=== PATIENT | male | born 2000 | race African-American/Black ===

== ENCOUNTER 2024-07-15 15:43 | Outpatient (AMB) | payer OTHER, SELFPAY ==
--- NOTE | 2024-07-15 15:45 | MHC.PC.OV ---
Vital Signs 07/15/24 15:53 Height 5 ft 7.32 in Weight 180 lb BMI 27.9 BP 110/78 Blood Pressure Location Rt brachial Position Sitting Respiration 12 Pulse 70 Pulse Source Pulse Oximeter Pulse Oximetry (%) 97 Oxygen Delivery Method Room Air Intake Visit Re[facility] Intake Note: New patient visit Recovery Specialist Required: No Allergies Retin-A Allergy (Unknown, Uncoded 07/15/24 15:46) unknown Medication List - Last Reconciled 07/15/24 by [facility]im[facility] 10 mg PO DAILY Tobacco use date assessed: 07/15/24 Dental Screening Dental Screen Date: 07/15/24 Did you have a dental visit in the last 12 months?: Yes Did you have a dental problem in the last 6 months where you did not have access to dental care?: No Was dental information given to patient?: Patient has dentist HPI HPI Comments History of Present Illness Details History of Present Illness The patient is a 23-year-old male presenting for a hospital discharge follow up. Has concerns related to pericarditis and newly diagnosed hyperthyroidism. In early April, the patient experienced chest pain originating from shoulder discomfort and sought emergency care at [facility]. At that time, he was diagnosed with pericarditis and coincidentally discovered to have hyperthyroidism. Subsequent follow-up with an director of student financial services led to a diagnosis of Graves' disease, for which the patient commenced on methimazole at a dosage of 10 mg daily. There has been an indication of potential remission. The patient reports persistent increased heart rate and occasional shortness of breath during physical activities, but no ongoing chest pain. The patient has not undergone a repeat echocardiogram since the initial diagnosis and is concerned about potential physical activity limitations due to his previous medical history. He has also experienced difficulty swallowing, which led to another emergency department visit on July 05, but has since resolved. This record avail and reviewed. Other records n/a Wants to see derm for acne. Was seeing endo @ [facility], not happy, [place] [facility] [place] ROS - The patient has no reported history of illegal drug injection and only occasional social use of marijuana. - The patient is physically active but has some exercise intolerance, reporting shortness of breath during activities. 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 Completed colchine and asa x 14 days in Apr then stopped, not active w/ cards. Physical Exam General: Awake, alert. No apparent distress Eyes: Sclera and conjunctiva clear bilaterally Cardiovascular: Regular rate and rhythm, but recent history of pericarditis and abnormal EKG @ ED residual ST segment elevation in the anterior leads but no longer diffusely, higher suspiciion for benign early repolarization, nonspecific T wave abnormalities No costochondral tenderness Respiratory: Clear to auscultation bilaterally, but patient reports shortness of breath with exertion No edema BLE Plan - Pericarditis: Order an echocardiogram and a Holter monitor for further evaluation. Discuss continued monitoring of heart rhythm and structure. No chest pain currently; monitor symptoms closely. - Hyperthyroidism/Graves' Disease: Continue methimazole 10 mg daily. Follow up with endocrinology for ongoing management. - Arrange cardiology and endocrinology referrals to ensure integrated care. Initiate referrals through [facility] - per request. - Due to reported intolerance to aspirin, monitor for any signs of adverse effects and consider alternative management if necessary. Patient was informed and verbally consented to the use of an ambient scribe for clinic note documentation during this visit. Discussion Notes I discussed the patient's current medical status and the need for further evaluation of the pericarditis through an echocardiogram and a Holter monitor. We talked about potential activities and the possibility of participation in physical sports but agreed that clearance would depend on additional cardiac evaluations. The benefits of monitoring for possible arrhythmias through a Holter monitor were detailed, with an explanation of how symptoms could correlate to physiological data. For Graves' disease, we discussed the management plan involving methimazole, with a follow-up set for endocrinology consultations. I explained the option of transferring endocrinology care for more satisfactory communication and collaboration. Finally, I reiterated the importance of timely assessments for both cardiology and endocrinology. The patient expressed understanding of the plan and confirmed their cooperation. Patient Instructions - Continue taking methimazole 10 mg daily as prescribed. - Await contact from cardiology and endocrinology for scheduling of follow-up appointments and confirm visits. - Get the echocardiogram and Holter monitor tests performed as soon as possible. - Monitor for any new or worsening symptoms such as chest pain, difficulty breathing, or palpitations and report these promptly. - Maintain activity levels within comfort and avoid strenuous exertion until cleared by cardiology. - Use the patient portal for accessing test results and communicate with healthcare providers for any concerns arising. Derm referral per request RTO in 5-6 weeks to fu with PCP Dr Plummer on testing, sooner PRN Total time spent caring for the patient today was 60 minutes. This includes time spent before the visit reviewing the chart, time spent during the visit, and time spent after the visit on documentation PFSH Surgical History (Updated 07/15/24 @ 15:51 by Marian Choi CMA) H/O left knee surgery Family History (Updated 07/15/24 @ 15:51 by Marian Choi CMA) Mother No problems noted. Father No problems noted. Other Substance abuse Social History (Updated 07/15/24 @ 15:55 by Marian Choi CMA) Housing: House ([facility]) Alcohol intake: current Alcohol intake frequency: holidays/special occasions only Patient Tobacco Use Status: Former Tobacco user Years Smoked: 5 e-Cigarette/Vaping Use: Never Used Use of substances other than those prescribed or required for medical reasons: No service: No Current occupational status: employed Current occupation: [employer] Current occupational exposures/hazards: No Cognitive needs: No Hearing needs: No Questionnaire PHQ-9 Over the last 2 weeks, how often have you been bothered by any of the following problems? 1. Little interest or pleasure in doing things: not at all 2. Feeling down, depressed, or hopeless: not at all 3. Trouble falling or staying asleep, or sleeping too much: not at all 4. Feeling tired or having little energy: not at all 5. Poor appetite or overeating: several days 6. Feeling bad about yourself - or that you are a failure or have let yourself or your family down: not at all 7. Trouble concentrating on things, such as reading the newspaper or watching television: not at all 8. Moving or speaking so slowly that other people could have noticed. Or the opposite - being so fidgety or restless that you have been moving around a lot more than usual: not at all 9. Thoughts that you would be better off or of hurting yourself in some way: not at all Total score: 1 Depression Screening Interpretation: Negative Depression Screening Done: Yes 10744 - PHQ-9 Billing: Yes Source: Developed by Drs. Wing Harris, Connie Yepez, Jeff Dennis and colleagues, with an educational vane from [employer] Thrive Questionnaire Date Thrive assessed: 07/15/24 I am a: Patient What is your living situation today?: I have a steady place to live Within the past 12 months, did the food you bought not last and you didn't have the money to get more?: Never true Within the past 12 months, did you worry whether your food would run out before you got money to buy more?: Sometimes True Do you have trouble paying for medicines?: No Do you have trouble getting transportation to medical appointments?: No Do you have trouble paying your heating and electricity bill?: No Do you have trouble taking care of your child, family member or friend?: No Do you have trouble with day-to-day activities such as bathing, preparing meals, shopping, managing finances, etc.?: No Are you currently unemployed and looking for a job?: No Are you interested in more education?: Yes Please select the resources that you would like help with: Education Currently or been in a relationship where the following occur: No concerns reported THRIVE Score: 1 AUDIT C Alcohol Use Questionnaire (AUDIT-C) 1. How often do you have a drink containing alcohol?: Monthly or less 2. How many drinks containing alcohol do you have on a typical day when you are drinking?: 1 or 2 3. How often do you have six or more drinks on one occasion?: Never Total Score: 1 Score Reviewed/Action Taken: Yes JOE-7 AMB Questionnaire JOE-7 Date JOE - 7 assessed: 07/15/24 Feeling nervous, anxious, or on edge: 0 = Not at all Not being able to stop or control worryin = Several days Worrying too much about different things: 0 = Not at all Trouble relaxin = Not at all Being so restless that it is hard to sit still: 0 = Not at all Becoming easily annoyed or irritable: 0 = Not at all Feeling afraid as if something awful might happen: 0 = Not at all Total JOE-7 score (0-4 normal; 5-9 mild; 10-14 moderate; 15-21 severe): 1 Source: Developed by Drs. Wing Harris, Connie Yepez, Jeff Dennis and colleagues, with an educational vane from [employer] JOE-7 Assessment Billing JOE-7 Assessment Tool: JOE-7 Assessment 15840 Physical exam (Primary Care) Vital Signs: Last Vital Signs Pulse 70 07/15/24 15:53 Resp 12 07/15/24 15:53 BP 110/78 07/15/24 15:53 Pulse Ox 97 07/15/24 15:53 Oxygen Delivery Method Room Air 07/15/24 15:53 BMI result Body Mass Index 27.9 Tobacco/Smoking Status: Tobacco use Status Tobacco use date assessed 07/15/24 07/15/24 15:55 Patient Tobacco Use Status Former Tobacco user 07/15/24 15:55 e-Cigarette/Vaping Use Never Used 07/15/24 15:55 PHQ-9: PHQ-9 Score PHQ-9: Total score 1 07/15/24 16:22 Depression Screening Interpretation: Negative Thrive Assessment: Date of Thrive Assessment Date Thrive assessed 07/15/24 07/15/24 15:55 Currently or been in a relationship where the following occur: No concerns reported Coding Level of Care Code Est Pt Level 5 (02684) Complex EM visit Add On G2211 Diagnoses Hospital discharge follow-up Z09 Graves disease E05.00 Pericarditis I31.9 Pericarditis type: unspecified type Tachycardia R00.0 Acne vulgaris L70.0 Acne type: acne vulgaris Additional Codes JOE-7 Assessment Billing - JOE-7 Assessment Tool: JOE-7 Assessment 41721 ([id number]) PHQ-9 - 08271 - PHQ-9 Billing: Yes ([id number]) Assessment & Plan Assessment & Plan (1) Hospital discharge follow-up: Code(s): Z09 - Encounter for follow-up examination after completed treatment for conditions other than malignant neoplasm Category: Medical (2) Graves disease: Code(s): E05.00 - Thyrotoxicosis with diffuse goiter without thyrotoxic crisis or storm Category: Medical (3) Pericarditis: Code(s): I31.9 - Disease of pericardium, unspecified Category: Medical Qualifiers: Pericarditis type: unspecified type (4) Tachycardia: Code(s): R00.0 - Tachycardia, unspecified Category: Medical (5) Acne: Code(s): L70.9 - Acne, unspecified Category: Medical Qualifiers: Acne type: acne vulgaris Qualified Code(s): L70.0 - Acne vulgaris Plan . Orders: Orders CA echo transthoracic complete Today I31.9 - Disease of pericardium, unspecified ECG 3 day holter monitor Today I31.9 - Disease of pericardium, unspecified, R00.0 - Tachycardia, unspecified Lipid Panel Today E05.00 - Thyrotoxicosis with diffuse goiter without thyrotoxic crisis or storm, I31.9 - Disease of pericardium, unspecified, R00.0 - Tachycardia, unspecified Microalbumin, Random (w Creat) Today E05.00 - Thyrotoxicosis with diffuse goiter without thyrotoxic crisis or storm, I31.9 - Disease of pericardium, unspecified, R00.0 - Tachycardia, unspecified TSH reflex Free T4 Today E05.00 - Thyrotoxicosis with diffuse goiter without thyrotoxic crisis or storm, I31.9 - Disease of pericardium, unspecified, R00.0 - Tachycardia, unspecified Vitamin D 25-OH Total Today E05.00 - Thyrotoxicosis with diffuse goiter without thyrotoxic crisis or storm, I31.9 - Disease of pericardium, unspecified, R00.0 - Tachycardia, unspecified Vitamin B12 and Folate Today E05.00 - Thyrotoxicosis with diffuse goiter without thyrotoxic crisis or storm, I31.9 - Disease of pericardium, unspecified, R00.0 - Tachycardia, unspecified Erythrocyte Sedimentation Rate Today E05.00 - Thyrotoxicosis with diffuse goiter without thyrotoxic crisis or storm, I31.9 - Disease of pericardium, unspecified, R00.0 - Tachycardia, unspecified HIV Ab/Ag Today E05.00 - Thyrotoxicosis with diffuse goiter without thyrotoxic crisis or storm, I31.9 - Disease of pericardium, unspecified, R00.0 - Tachycardia, unspecified Uric Acid Today E05.00 - Thyrotoxicosis with diffuse goiter without thyrotoxic crisis or storm, I31.9 - Disease of pericardium, unspecified, R00.0 - Tachycardia, unspecified Lyme IgG/IgM w/reflex to WB Today I31.9 - Disease of pericardium, unspecified Complete Blood Count no Diff Today E05.00 - Thyrotoxicosis with diffuse goiter without thyrotoxic crisis or storm, I31.9 - Disease of pericardium, unspecified, R00.0 - Tachycardia, unspecified Comprehensive Met. Panel Today E05.00 - Thyrotoxicosis with diffuse goiter without thyrotoxic crisis or storm, I31.9 - Disease of pericardium, unspecified, R00.0 - Tachycardia, unspecified Hemoglobin A1c Today E05.00 - Thyrotoxicosis with diffuse goiter without thyrotoxic crisis or storm, I31.9 - Disease of pericardium, unspecified, R00.0 - Tachycardia, unspecified CRP High Sensitivity Today E05.00 - Thyrotoxicosis with diffuse goiter without thyrotoxic crisis or storm, I31.9 - Disease of pericardium, unspecified, R00.0 - Tachycardia, unspecified Hepatitis A,B,C Profile Today E05.00 - Thyrotoxicosis with diffuse goiter without thyrotoxic crisis or storm, I31.9 - Disease of pericardium, unspecified, R00.0 - Tachycardia, unspecified DAVID Reflex Titer and Pattern Today E05.00 - Thyrotoxicosis with diffuse goiter without thyrotoxic crisis or storm, I31.9 - Disease of pericardium, unspecified, R00.0 - Tachycardia, unspecified Referrals Endocrinology Referral E05.00 - Thyrotoxicosis with diffuse goiter without thyrotoxic crisis or storm Cardiology Referral I31.9 - Disease of pericardium, unspecified Dermatology Referral L70.9 - Acne, unspecified Patient Instructions: Walk-In Care (Urgent Care): We Make it Easy Walk-in for urgent medical issues such as: ? Seasonal Allergies ? Insect Bites ? Cough ? Diarrhea ? Acute Asthma Attacks ? Back, Knee or Joint Pain ? Ear Infection ? Fever without a Rash ? Headaches ? Nausea ? [place] [facility], Rash or Skin Irritation ? Sore Throat ? Sports Physicals ? Vomiting Most insurances are accepted. Patients do not need to be part of the [facility] to seek care at the walk-in clinic. Locations [facility] [address]a [address], [place] [address] ? [phone] [facility] in [place] provides services to ages 18 and over. Open Thursday-Thursday: 8 a.m. to 5 p.m. and Thursday: 9 a.m. to 3 p.m.* *Hours may vary due to staffing availability. To confirm Walk-In Care hours in [place], please call [phone]. [address] [place] [address] ? [phone] [facility] in [place] provides services to ages 12 and over. Open Thursday-Thursday: 8 a.m. to 5 p.m. Hours may vary due to staffing availability. To confirm Walk-In Care hours in [place], please call [phone]. LABORATORY SERVICES: [facility] ? Primary Location [address] [place] [address] Thursday through Thursday 6:00 AM ? 5:00 PM Thursday 7:00 AM ? 11:00 AM* [phone] The [facility] is centrally located near the front entrance of the [facility] for easy outpatient access. Convenient parking is provided for outpatients. *Hours may vary due to staffing availability. To confirm Laboratory hours for any location, please call [phone]. Offsite Location For your convenience, we offer offsite laboratory draw stations at the following locations: [address] [place] [address] ? [facility] [address], [address] Thursday through Thursday 7:30 AM ? 1:00 PM* [phone] *Hours may vary due to staffing availability. To confirm Laboratory hours for any location, please call [phone]. [place] ? [address] Thursday through Thursday 6:00 AM ? 3:30 PM* Thursday 6:30 AM ? 3 PM* [phone] *Hours may vary due to staffing availability. To confirm Laboratory hours for any location, please call [phone] [place] [address] Thursday through Thursday 7:30 AM ? 4:00 PM* [phone] *Hours may vary due to staffing availability. To confirm Laboratory hours for any location, please call [phone] [place] [address] Thursday through 9:00 AM ? 4:00 PM* *Hours may vary due to staffing availability. To confirm Laboratory hours for any location, please call [phone]. Appointments are not necessary. Walk-ins are welcome. Like all the departments throughout the [facility], our Lab undergoes frequent reviews to ensure the quality and accuracy of test results, and our staff takes special pride in its status as a nationally accredited facility. Patient Portal: ONE PATIENT. ONE RECORD. BETTER CARE. [facility] has a fully integrated, cutting-edge mobile electronic health information system that has revolutionized the way we care for our patients and manage our organization. This system improves communication and coordination enabling us to provide safe, higher-quality care, and an overall positive experience for staff and patients. Our first priority, as always, is to deliver the highest quality care possible. The system is running in the background supporting that priority. This portal is for all [facility] services and practices. If you are experiencing any technical difficulties with enrolling or logging into the Patient Portal please complete the [facility] Patient Portal Technical Support Form. [facility] now offers a new secure on-line interactive tool for patients to review their health information ? Patient Portal. This interactive web portal will enable patients and their families to take an active role in their care by providing easy, secure access to their health information via the internet. The Patient Portal provides patients with instant access to their health information, including laboratory results, medications, allergies, demographic information, visit history, and more. In addition to managing their own care, parents and health care proxies with authorized consent will appreciate the ability to access the records of those individuals for whom they provide care. Please note: if you wish to gain access (Proxy) to another patient?s portal, you will be required to come to the Medical Records Department in person at [facility]. Both the patient giving proxy access and the proxy will need to provide photo identification and complete the appropriate authorization. The Patient Portal also allows track their appointments online. The [facility] Patient Portal also saves patients time by allowing them to submit updates to their demographic and contact information prior to their visits. Portal email notifications will also alert patients to any new activity on their portal, such as test results and new appointments. In order to initially enroll in the [facility] Patient Portal, you will need to enter some required information including the following: ? your [facility] Medical Record number ? your personal home email address ? name ? date of Please note: In order to enroll in the [facility] Patient Portal, we need to have your email address on file in your electronic medical record. The email address needs to be specific for one person (yourself) in order for your Portal enrollment to be successful. You can update your email address in person with our Registration staff when you are registering for a hospital visit. Otherwise, you will need to come to the Health Information Management (Medical Records) Department at [facility]. We are open from Thursday ? Thursday from 7:30 a.m. ? 4:30 p.m. You will be required to present a photo id. Once you have successfully enrolled in the Patient Portal, you will receive a one-time user id and password for the Portal, sent to your email address. This will allow you to log into the Patient Portal within 99 hrs and reset your own logon id and password, and define personal security questions. Once your permanent login and password have been set, you can log into the [facility] Patient Portal at any time via the blue button above or from the Portal Logon button on any page of the [facility] website. [facility] and [facility] encourage all of our patients to enroll in Patient Portal as it presents a valuable opportunity for patients and their families to actively participate in their care and stay healthy Welcome to [facility]. We look forward to working with you.
[2024-07-15 15:53] VITALS: BP 110/78; PULSE 70; RESP 12; O2SAT 97; BMI 27.9
== END 2024-07-15 16:47 | disposition home or self-care (01) ==
PROVIDERS: PCP Family Medicine; Visit Provider Nurse Practitioner Family
DX: Z09 Encounter for follow-up examination after completed treatment for conditions other than malignant neoplasm (principal); E05.00 Thyrotoxicosis with diffuse goiter without thyrotoxic crisis or storm; I31.9 Disease of pericardium, unspecified; R00.0 Tachycardia, unspecified; L70.0 Acne vulgaris

== ENCOUNTER → 2024-07-15 15:43 | Outpatient (BNVA) | payer OTHER, SELFPAY | PROVIDERS: PCP Family Medicine; Visit Provider Nurse Practitioner Family | DX: Z09 Encounter for follow-up examination after completed treatment for conditions other than malignant neoplasm (principal); E05.00 Thyrotoxicosis with diffuse goiter without thyrotoxic crisis or storm; I31.9 Disease of pericardium, unspecified; R00.0 Tachycardia, unspecified; L70.0 Acne vulgaris | CPT/HCPCS: 96127; 99212 ==

== ENCOUNTER 2024-08-01 14:48 | Outpatient (AMB) | payer OTHER, SELFPAY ==
[2024-08-01 15:11] VITALS: BP 116/72; PULSE 85; BMI 26.3
--- NOTE | 2024-08-01 15:11 | A.OFFVIS_ITS ---
Vital Signs 08/01/24 15:11 Height 5 ft 10 in Weight 182 lb 15.739 oz BMI 26.3 BP 116/72 Blood Pressure Location Rt brachial Position Sitting Pulse 85 Pulse Source Pulse Oximeter Intake Visit Reasons: Thyrotoxicosis with diffuse goiter w/o thyrotoxic Intake Note: NEW Patient presents today to establish treatment for Thyrotoxicosis with Diffuse Goiter w/o Thyrotoxic: Pharmacy Clinical Specialist Required: No Accompanied by: Self / Same As Patient Allergies Retin-A Allergy (Unknown, Uncoded 07/15/24 15:46) unknown Medication List - Last Reconciled 08/01/24 by Yaquelin Benítez MD methimazole 10 mg PO DAILY HPI Comments Details: 23-year-old male here today for initial evaluation of Graves disease. Diagnosed in April 2024. Hospitalized in April 2024 , was diagnosed with pericaridits, and also found to have Graves disease based on blood work saw [facility] Endocrinology May 2024 Started on methimazole 10 mg daily , taking it regularly In June 2024, again went to the ED for throat pain, resolved with pain meds In April was having chest discomfort/ pain , shoulder pain. Came on suddenly. No palpitations . No loose stools. No heat intolerance. No diaphoresis. Lost 10 lbs and gained it back since starting methimazole. Patient currently denies , hair loss, anxiety, , mood changes, low energy, changes in appearance of eyes or vision changes, tremors, increased diaphoresis or dry skin. ?Reports mild tremors. Patient denies any difficulty swallowing, pain on swallowing or voice changes or difficulty breathing. Patient denies any history of childhood neck radiation. Denies having ever used lithium, amiodarone or biotin supplements. Patient denies any family history of thyroid cancer or thyroid disease. Occasional alcohol use No more smoking Quit 5 years ago Marijuana once in a few weeks Review of systems Constitutional: no fevers, chills or weight loss HEENT: no changes in vision Cardiac: No chest pain, discomfort or palpitations. Pulmonary: No SOB GI:No abdominal pain, no nausea or vomiting, no anorexia, no blood in stool : no burning micturition, dysuria or increase in urinary frequency Physical exam General: sitting comfortably in no acute distress HEENT: normocephalic/atraumatic, EOM intact, moist oral mucosa Neck: supple, symmetrical, mildly prominent thyroid , no dorsocervical or supraclavicular fat pads Cardiac: normal heart sounds Pulm: normal breath sounds B/L, no added breath sounds Abd: not distended, no tenderness Extremities: no edema, no signs of myxedema Neuro: AAO x3, Speech: normal, no facial droop, moving all 4 extremities PFSH Surgical History (Updated 08/01/24 @ 15:17 by NAZARIO Heard) H/O left knee surgery Family History (Updated 07/15/24 @ 15:51 by Marian Choi CMA) Mother No problems noted. Father No problems noted. 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 I do not have any TFTs in the chart. He was previously seeing endocrinology at [facility]. We will try to obtain records. We will repeat his blood work today as well as antibody levels for our records. Does not have any significant symptoms currently. He was also diagnosed with pericarditis in April 2024, he has a upcoming appointment with Cardiology on August 15. No signs of Graves orbitopathy on exam. He does not have any eye symptoms. Discussed with patient that about 30% of the patients have remission after 12-18 months of treatment with methimazole. More recent data has shown longer periods of treatment resulting in better remission rates as well. At this time we will plan to continue treatment with methimazole and continue adjusting the dose as needed. In the long run if she does not have remission, we also briefly discussed definitive therapy options of radioactive iodine ablation and total thyroidectomy and the need for requiring long-term levothyroxine therapy after those procedures. Plan: -ordered TSH, free T4, total T3, TSI, trap antibodies -obtain records from [facility] -continue methimazole 10 mg daily The following were discussed as potential side effects of methimazole: - Serious skin rashes - nausea, vomiting, or severe hepatic injury - Agranulocytosis: a rare side effect of methimazole involves a severe decrease in the production of white blood cells. This condition is extremely serious, but affects only one out of every 200 to 500 people who take an antithyroid drug. Agranulocytosis more commonly occurs within the first three months of starting treatment with an antithyroid drug, but can occur at any time. If patient develops a fever (temperature above 100.5F), or other signs or symptoms of infection, she should stop taking the tapazole and immediately have a complete blood count (CBC) done. Serious and potentially life threatening infections, or even , can occur before agranulocytosis resolves. However, once the antithyroid drug is stopped, agranulocytosis usually resolves within a week. - Arthralgias, myalgias - Renal: Nephritis - Fever Patient will stop medication and call our office if these occur. Plan I spent 45 minutes in reviewing the record, seeing the patient and documenting in the medical record. Orders: Orders Thyroid Stimulating Hormone Today E05.00 - Thyrotoxicosis with diffuse goiter without thyrotoxic crisis or storm Triiodothyronine T3 Total Today E05.00 - Thyrotoxicosis with diffuse goiter without thyrotoxic crisis or storm Thyroid Peroxidase Antibodies Today E05.00 - Thyrotoxicosis with diffuse goiter without thyrotoxic crisis or storm Free T4 (Free Thyroxine) Today E05.00 - Thyrotoxicosis with diffuse goiter without thyrotoxic crisis or storm Thyroid Stimulating Immunoglob Today E05.00 - Thyrotoxicosis with diffuse goiter without thyrotoxic crisis or storm Thyrotropin Receptor Antibody Today E05.00 - Thyrotoxicosis with diffuse goiter without thyrotoxic crisis or storm Patient Instructions: Do blood work Continue methimazole 10 mg daily Follow up in 3 months The following were discussed as potential side effects of methimazole: - Serious skin rashes - nausea, vomiting, or severe hepatic injury - Agranulocytosis: a rare side effect of methimazole involves a severe decrease in the production of white blood cells. This condition is extremely serious, but affects only one out of every 200 to 500 people who take an antithyroid drug. Agranulocytosis more commonly occurs within the first three months of starting treatment with an antithyroid drug, but can occur at any time. If patient develops a fever (temperature above 100.5F), or other signs or symptoms of infection, she should stop taking the tapazole and immediately have a complete blood count (CBC) done. Serious and potentially life threatening infections, or even , can occur before agranulocytosis resolves. However, once the antithyroid drug is stopped, agranulocytosis usually resolves within a week. - Arthralgias, myalgias - Renal: Nephritis - Fever Patient will stop medication and call our office if these occur. Coding Level of Care Code New Pt Level 4 (20963) Diagnoses Graves disease E05.00 Time Spent (min) 45
== END 2024-08-01 15:52 | disposition home or self-care (01) ==
PROVIDERS: PCP Family Medicine; Visit Provider Student in an Organized Health Care Education/Training Program
DX: E05.00 Thyrotoxicosis with diffuse goiter without thyrotoxic crisis or storm (principal)
CPT/HCPCS: 99204

== ENCOUNTER 2024-08-01 14:48 | Outpatient (REF) | payer OTHER, SELFPAY ==
[2024-08-01 17:45] LABS: Free T4 (Free Thyroxine) 1.34 ng/dL (0.71-1.85); Thyroid Stimulating Hormone < 0.01 uIU/mL (0.32-4.0)
[2024-08-02 23:09] LABS: Thyroid Peroxidase Antibodies 3 IU/mL (<9)
[2024-08-03 06:39] LABS: Triiodothyronine T3 Total 273 ng/dL (76-181)
[2024-08-05 14:38] LABS: Thyrotropin Receptor Antibody 6.24 IU/L (<=2.00)
[2024-08-05 15:13] LABS: Thyroid Stimulating Immunoglob 238 % baseline (<140)
== END 2024-08-01 14:49 | disposition home or self-care (01) ==
LOC: HO.LAB 14:48
PROVIDERS: PCP Family Medicine; Visit Provider Student in an Organized Health Care Education/Training Program
DX: E05.00 Thyrotoxicosis with diffuse goiter without thyrotoxic crisis or storm (principal)
CPT/HCPCS: 36415; 83520; 84439; 84443; 84445; 84480; 86376; 99202

== ENCOUNTER 2024-08-09 15:10 | Outpatient (REF) | payer OTHER, SELFPAY ==
[2024-08-09 17:08] LABS: Hematocrit 44.4 % (42.0-52.0); Hemoglobin 14.8 g/dl (14.0-18.0); Mean Corpuscular HGB Conc 33.3 g/dl (31.0-36.0); Mean Corpuscular Hemoglobin 25.2 pg (27.0-33.0); Mean Corpuscular Volume 75.5 fL (80.0-98.0); Mean Platelet Volume 10.7 fL (9.4-12.4); Platelet Count 216 X10*3/uL (160-400); Red Blood Count 5.88 X10*6/uL (4.60-5.80); Red Cell Distribution Width 13.5 % (11.0-16.0); White Blood Count 7.1 X10*3/uL (4.8-10.8)
[2024-08-09 17:45] LABS: Estimated Average Glucose 111 mg/dL; Hemoglobin A1C 134.3597 umol/L; Hemoglobin A1c % 5.5 % (<6.0); Total Hemoglobin (HGBA1C) 3706.7615 umol/L
[2024-08-09 17:48] LABS: Alanine Aminotransferase 65 U/L (0-40); Albumin Level 4.4 g/dL (3.5-5.0); Alkaline Phosphatase 249 U/L (39-117); Anion Gap 10 (12-20); Aspartate Amino Transferase 25 U/L (5-37); Bilirubin Total 0.7 mg/dL (0.0-1.0); Blood Urea Nitrogen 14 mg/dL (9-16); Calcium 9.8 mg/dL (8.4-10.2); Carbon Dioxide 29 mmol/L (22-29); Chloride 101 mmol/L (96-108); Cholesterol 136 mg/dL (<200); Estimated Glomerular Filt Rate > 60; Glucose Random 86 mg/dL (60-115); HDL Cholesterol 50 mg/dL (>40); LDL Cholesterol Calculated 63 mg/dL (<100); Sodium 136 mmol/L (135-145); Total Protein 8.1 g/dL (6.5-8.0); Triglycerides 119 mg/dL (<150); Uric Acid 7.5 mg/dL (3.4-7.0)
[2024-08-09 17:51] LABS: Creatinine Urine 123.76 mg/dL; Microalbum/Creatinine Ratio Ur 4.8 ug/mg cr (<30)
[2024-08-09 18:09] LABS: TSH reflex Free T4 < 0.01 uIU/mL (0.32-4.0)
[2024-08-09 18:27] LABS: Erythrocyte Sedimentation Rate 17 MM/HR (0-15)
[2024-08-09 18:49] LABS: Free T4 (Free Thyroxine) 1.62 ng/dL (0.71-1.85)
[2024-08-09 21:18] LABS: Vitamin B12 466 pg/mL (200-900)
[2024-08-10 08:28] LABS: HBS Num1 0.61 mIU/mL (0-7.99); HBsAGNum1 0.46 S/CO (0.00-0.99); HIV AB/AG Nonreactive (Nonreactive); HIV Num 1 0.05 S/CO (0.00-0.99); Hepatitis A Antibody IgM 0.16 Index (0-0.79); Hepatitis B Core Antibody Nonreactive (Nonreactive); Hepatitis B Surface Antigen Negative (Negative); ~HepC Num1 0.34 S/CO (0.00-0.79); ~Hepatitis A Antibody IgM Nonreactive (Nonreactive); ~Hepatitis B Surface Antibody NONREACTIVE (Nonreactive); ~Hepatitis C Antibody Nonreactive (Nonreactive)
[2024-08-10 09:05] LABS: MANUAL DIFF FLAG NO
[2024-08-10 09:17] LABS: Basophils Percent Auto 0.4 % (0-2); Eosinophils Percent Auto 0.4 % (0-4); Hematocrit 45.8 % (42.0-52.0); Hemoglobin 14.9 g/dl (14.0-18.0); Imm Gran Abs Auto 0.01 X10*3/uL (0.00-0.03); Imm Gran Pct Auto 0.1 % (0.0-0.4); Lymphocytes Absolute Auto 0.8 X10*3/uL (1.2-4.9); Lymphocytes Percent Auto 11.3 % (20-40); Mean Corpuscular HGB Conc 32.5 g/dl (31.0-36.0); Mean Corpuscular Hemoglobin 25.2 pg (27.0-33.0); Mean Corpuscular Volume 77.4 fL (80.0-98.0); Mean Platelet Volume 10.8 fL (9.4-12.4); Monocytes Absolute Auto 0.5 X10*3/uL (0.1-1.2); Neutrophils Absolute Auto 5.9 x10*3/uL (2.0-8.3); Neutrophils Percent Auto 80.8 % (45-73); Platelet Count 222 X10*3/uL (160-400); Red Blood Count 5.92 X10*6/uL (4.60-5.80); Red Cell Distribution Width 13.8 % (11.0-16.0); White Blood Count 7.3 X10*3/uL (4.8-10.8)
[2024-08-10 19:48] LABS: Lyme Abs Screen <0.90 index
[2024-08-12 15:23] LABS: Anti Nuclear Antibody Screen NEGATIVE (NEGATIVE)
[2024-08-14 18:19] LABS: CRP High Sensitivity >20.0 mg/L
== END 2024-08-09 15:11 | disposition home or self-care (01) ==
LOC: HO.LAB 15:10
PROVIDERS: Nurse Practitioner Family; PCP Family Medicine; Visit Provider Student in an Organized Health Care Education/Training Program
DX: I31.9 Disease of pericardium, unspecified (principal); E05.00 Thyrotoxicosis with diffuse goiter without thyrotoxic crisis or storm; R00.0 Tachycardia, unspecified
CPT/HCPCS: 36415; 80053; 80061; 82043; 82306; 82570; 82607; 82746; 83036; 84439; 84443; 84550; 85025; 85027; 85652; 86038; 86141; 86617; 86618; 86704; 86706; 86709; 86803; 87340; 87389

== ENCOUNTER → 2024-08-15 13:55 | Outpatient (REF) | payer OTHER, SELFPAY ==
--- NOTE | 2024-08-15 13:58 | CA_ITS ---
Transthoracic Echocardiogram Patient (Last, First, Middle): Burak Mcarthur, Gender: Male Date of : 2000 Age: 23 Procedure Date: 08/15/2024 Procedure Type: Transthoracic Echocardiogram Location: OP Height: 177.8 cm Weight: 82.56 kg BSA: 2.01 m2 Heart Rate: bpm BP: 116 / 72 mmHg Consulting Networking Engineer: LYNDA Referring MD: Kim Ulloa [facility]- Symptoms: I31.9 - Disease of pericardium, unspecified Study Quality: Adequate ECG Rhythm: Sinus Conclusions: - The left ventricular systolic function is normal. The calculated ejection fraction is 64% by biplane method. - No obvious valvular pathology seen on this study. Findings Left Ventricle Normal left ventricular cavity size. There is normal left ventricular wall thickness. The left ventricular systolic function is normal. The calculated ejection fraction is 64% by biplane method. There is no evidence of regional wall motion abnormalities. Diastolic function is normal for age. Right Ventricle Mildly increased right ventricular cavity size. There is normal right ventricular systolic function. Atria Both atria are normal in size. Aortic Valve There is a normal trileaflet aortic valve. There is no aortic valve stenosis. There is no aortic valve regurgitation. Mitral Valve The mitral valve appears normal. There is no mitral valve regurgitation. There is no mitral valve stenosis. Pulmonic Valve There is trace pulmonic valve regurgitation. Tricuspid Valve Normal tricuspid valve structure. There is trace tricuspid valve regurgitation. There is no evidence of pulmonary hypertension. Great Vessels The asc aorta and aortic arch are normal in size. Venous The inferior vena cava is normal in size and collapses greater than 50% with inspiration. Pericardium/Pleural There is no evidence of pericardial effusion. Prior Study Comparison No prior study available for comparison. Recommendations, Care & Conclusions No obvious valvular pathology seen on this study. Measurements 2D Linear Measurements IVSd: 1.03 0.6-0.9/0.6-1.0 cm LVIDd: 5.02 3.9-5.3/4.2-5.9 cm LVIDd Index: 2.50 2.4-3.2/2.2-3.1 cm/m2 LVIDs: 2.92 2.0-3.6 cm LVPWd: 0.97 0.7-1.1 cm LA Diam: 3.60 2.7-3.8/3.0-4.0 cm LAIDs Index: 1.79 1.5-2.3 cm/m2 LV Mass: 228.07 67-162/88-224 g LV Mass Index: 113.47 43-95/49-115 g/m2 LVOT Diam: 2.30 3.0+(-)1.3 cm 2D Systolic Function EF 4C: 59.20 >55% EF 2C: 67.70 >55% EF BiP: 63.90 >55% Mitral Valve MV Pk E: 0.66 MV PK A: 0.62 MV Decel Time: 218.00 E/A: 1.10 E'Lateral: 16.60 E'Medial: 10.80 E/E' Med: 6.10 E/E' Lat: 4.00 PHT: 64.00 MVA PHT: 3.44 Decel [place]: 3.04 Aortic Valve AoV Pk Ruben: 1.49 AoV Mn Ruben: 1.05 AoV VTI: 0.28 AoV Pk Grad: 9.00 Aov Mn Grad: 5.00 ANTONY Cont.VTI: 3.28 LVOT LVOT Pk Ruben: 1.24 LVOT Mn Ruben: 0.86 LVOT VTI: 0.22 LVOT Pk Grad: 6.00 LVOT Mn Grad: 3.00 LVOT Diam: 2.30 LVOT Area: 4.15 Diastolic Function MV Pk E: 0.66 MV Pk A: 0.62 E/A: 1.10 E'Medial: 10.80 E/E' Med: 6.10 E' Laterial: 16.60 E/E' Lat: 4.00 Right Ventricle TAPSE (mm): 24.40 TVS' Ruben: 12.70 Tricuspid Valve TR Pk Ruben: 1.84 TR Pk Grad: 14.00 RA Press: 3.00 RVSP: 17.00 Great Vessels Aorta Sinus of Valsalva: 3.36 2.0-3.[address] [place]: 2.14 1.7-3.4 cm Ao Asc: 2.70 2.1-3.4 cm Ao Arch: 2.40 Updated in Other Vendor System with Status of Final Álvaro Garcia MD electronically signed on 08/15/2024 3:35:38 PM with status of Final
== END ==
LOC: HO.CARD 13:55
PROVIDERS: PCP Family Medicine; Visit Provider Nurse Practitioner Family
DX: I31.9 Disease of pericardium, unspecified (principal); R00.0 Tachycardia, unspecified
CPT/HCPCS: 93242; 93306

== ENCOUNTER → 2024-08-15 13:58 | Outpatient (BNV) | payer OTHER, SELFPAY | PROVIDERS: PCP Family Medicine; Visit Provider Internal Medicine | DX: I31.9 Disease of pericardium, unspecified (principal) | CPT/HCPCS: 93306 ==

== ENCOUNTER 2024-08-18 11:58 | Outpatient (AMB) | payer OTHER, SELFPAY ==
--- NOTE | 2024-08-18 12:32 | A.OFFPC_ITS ---
Vital Signs 08/18/24 12:34 Height 5 ft 10 in BP 120/70 Blood Pressure Location Rt brachial Position Sitting Respiration 14 Pulse 97 Pulse Source Pulse Oximeter Pulse Oximetry (%) 98 Oxygen Delivery Method Room Air Intake Visit Reasons: tyler back to [facility] (keep appt) Intake Note: tyler Allergies Retin-A Allergy (Unknown, Uncoded 07/15/24 15:46) unknown Tobacco use date assessed: 07/15/24 Dental Screening Dental Screen Date: 07/15/24 HPI tyler back to [facility] (keep appt) HPI Details 23 y/o male presents to f/u chronic cond itions. Had seen endocrinology 08/01/24 for Graves disease. Currently on methimazole 10mg daily. Has an appt. with them in October. Was diagnosed with pericarditis in April 2024. Has an upcoming appt. with Cardiology. Has a [address] in [address]. HPI Comments History of Present Illness Details Documentation assistance for Ravindra Plummer MD, was provided by Dane Beaulieu,? Sports Complex Attendant on 08/18/2024 at 1:14 PM EST. I, Dr. Plummer, have read, observed, and verified documentation. ?? PFSH Surgical History H/O left knee surgery Family History Mother No problems noted. Father No problems noted. 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 [employer] Current occupational exposures/hazards: No Cognitive needs: No Hearing needs: No Questionnaire Thrive Questionnaire Date Thrive assessed: 07/15/24 I am a: Patient What is your living situation today?: I have a steady place to live Within the past 12 months, did the food you bought not last and you didn't have the money to get more?: Never true Within the past 12 months, did you worry whether your food would run out before you got money to buy more?: Sometimes True Do you have trouble paying for medicines?: No Do you have trouble getting transportation to medical appointments?: No Do you have trouble paying your heating and electricity bill?: No Do you have trouble taking care of your child, family member or friend?: No Do you have trouble with day-to-day activities such as bathing, preparing meals, shopping, managing finances, etc.?: No Are you currently unemployed and looking for a job?: No Are you interested in more education?: Yes Please select the resources that you would like help with: Education Currently or been in a relationship where the following occur: No concerns reported THRIVE Score: 1 JOE-7 AMB Questionnaire JOE-7 Date JOE - 7 assessed: 07/15/24 Source: Developed by Drs. Wing Harris, Connie Yepez, Jeff Dennis and colleagues, with an educational vane from [employer]. Review of Systems Const Denies chills, Denies fatigue, Denies fever(s), Denies headache(s) and Denies weakness ENT Denies dizziness and Denies headache(s) Card Denies dyspnea Resp Denies cough, Denies dyspnea, Denies wheezing and Denies other (shortness of breath) Musc Denies numbness and Denies tingling Neuro Denies dizziness, Denies headache(s), Denies numbness, Denies tingling and Denies weakness Psych Denies anxiety and Denies depression Endo Denies fatigue Aller/Immun Denies wheezing Physical exam (Primary Care) Vital Signs: Last Vital Signs Pulse 97 08/18/24 12:34 Resp 14 08/18/24 12:34 BP 120/70 08/18/24 12:34 Pulse Ox 98 08/18/24 12:34 Oxygen Delivery Method Room Air 08/18/24 12:34 Tobacco/Smoking Status: Tobacco use Status Tobacco use date assessed 07/15/24 08/18/24 12:38 Patient Tobacco Use Status Former Tobacco user 08/18/24 12:38 e-Cigarette/Vaping Use Never Used 08/18/24 12:38 Thrive Assessment: Date of Thrive Assessment Date Thrive assessed 07/15/24 08/18/24 12:38 Currently or been in a relationship where the following occur: No concerns reported Const General: well developed; No acute distress Nutritional Appearance: well nourished Orientation/consciousness: patient oriented x3 HENNM Head: Yes normocephalic and Yes atraumatic Eyes General: appearance normal, both eyes and all related structures Pupils: Equal, round and reactive pupils present EOM: EOMs intact bilaterally Resp Effort & Inspection: normal respiratory effort Auscultation: clear to auscultation bilaterally Cardio Rate: regular rate Rhythm: regular rhythm Heart sounds: S1 normal heart sound present, S2 normal heart sound present, no gallops, no murmurs and no rubs Neuro General: patient oriented x3 and gait normal Cranial nerves: Yes Equal, round and reactive pupils present Psych Affect: normal affect Coding Level of Care Code Est Pt Level 4 (17646) Diagnoses Pericarditis I31.9 Pericarditis type: unspecified type Graves disease E05.00 Assessment & Plan Assessment & Plan (1) Pericarditis: Code(s): I31.9 - Disease of pericardium, unspecified Category: Medical Qualifiers: Pericarditis type: unspecified type Plan: Recent?echo?appears?normal. Patient?has?been?referred?to?Cardiology?and?again?phone?number?to?call?th em?as?he?has?not?been?scheduled?yet. Patient?also?has?3?day?Holter?monitor?in?place. We?can?follow-up?on?this?next?week (2) Graves disease: Code(s): E05.00 - Thyrotoxicosis with diffuse goiter without thyrotoxic crisis or storm Category: Medical Plan: He?is?on?methimazole Followed?by?endocrinology?in?his?next?appointment?in?October Orders: Referrals Dermatology Referral L70.0 - Acne vulgaris
[2024-08-18 12:34] VITALS: BP 120/70; PULSE 97; RESP 14; O2SAT 98
== END 2024-08-18 13:21 | disposition home or self-care (01) ==
PROVIDERS: PCP Family Medicine; Visit Provider Family Medicine
DX: I31.9 Disease of pericardium, unspecified (principal); E05.00 Thyrotoxicosis with diffuse goiter without thyrotoxic crisis or storm

== ENCOUNTER → 2024-08-18 11:58 | Outpatient (BNVA) | payer OTHER, SELFPAY | PROVIDERS: PCP Family Medicine; Visit Provider Family Medicine | DX: I31.9 Disease of pericardium, unspecified (principal); E05.00 Thyrotoxicosis with diffuse goiter without thyrotoxic crisis or storm | CPT/HCPCS: 99212 ==

== ENCOUNTER 2024-08-25 09:35 | Outpatient (AMB) | payer OTHER, SELFPAY ==
--- NOTE | 2024-08-25 09:31 | A.OFFPC_ITS ---
Intake Visit Reasons: f/u cardiology appt. via telemedicine Allergies Retin-A Allergy (Unknown, Uncoded 07/15/24 15:46) unknown Tobacco use date assessed: 07/15/24 Dental Screening Dental Screen Date: 07/15/24 HPI f/u cardiology appt. via telemedicine HPI Details 23 y/o male presents to review Holter mo nitor test. Hx of graves disease. Holter monitor shows no arrhythmia. Shows mild tachycardia. He is now on methimazole 10mg daily. PFSH Surgical History H/O left knee surgery Family History Mother No problems noted. Father No problems noted. 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 Wing Harris, Connie Yepez, Jeff Dennis and colleagues, with an educational vane from [employer]. Review of Systems Const Denies chills, Denies fatigue, Denies fever(s), Denies headache(s) and Denies weakness ENT Denies dizziness and Denies headache(s) Card Denies dyspnea Resp Denies cough, Denies dyspnea, Denies wheezing and Denies other (shortness of breath) Musc Denies numbness and Denies tingling Neuro Denies dizziness, Denies headache(s), Denies numbness, Denies tingling and Denies weakness Psych Denies anxiety and Denies depression Endo Denies fatigue Aller/Immun Denies wheezing Physical exam (Primary Care) Tobacco/Smoking Status: Tobacco use Status Tobacco use date assessed 07/15/24 08/25/24 09:34 Patient Tobacco Use Status Former Tobacco user 08/25/24 09:34 e-Cigarette/Vaping Use Never Used 08/25/24 09:34 Thrive Assessment: Date of Thrive Assessment Date Thrive assessed 07/15/24 08/25/24 09:34 Telehealth Telehealth Telehealth Platform: Telephone Location of provider rendering services: practice address Location of patient: address on file Patient Identification confirmed using: Name, : Yes Telehealth method: voice only Patient verbally consented to treatment: Yes Patient verbally consented to billing insurance company: Yes Patient informed of any privacy concerns related to visit: Yes Minutes spent on Phone/Video with Pt.: 9 Coding Level of Care Code Tele Est Pt Level 2 (35985) Diagnoses Tachycardia R00.0 Graves disease E05.00 Assessment & Plan Assessment & Plan (1) Tachycardia: Code(s): R00.0 - Tachycardia, unspecified Category: Medical Plan: Holter?monitor?shows?mild?and?likely?physiologic?tachycardia?without?other?arrhy thmias Echocardiogram?showed?normal?ejection?fraction,?wall?motion?and?valvular?functio n. He?has?a?history?of?Graves?disease?and?now?on?methimazole. He?has?been?holding?off?on?exercising?but?at?this?point?I?think?he?can?begin?to? exercise?and?this?will?likely?improve?conditioning?and?decrease?overall?heart?ra te?is?well. He?had?a?referral?to?Cardiology?made?by?Andree?Smith?ASSEMBLER WATCH TRAIN in?he?would?like?to?pursue?this?for?reassurance. He?can?follow-up?with?me?around?November (2) Graves disease: Code(s): E05.00 - Thyrotoxicosis with diffuse goiter without thyrotoxic crisis or storm Category: Medical Plan: Now?on?methimazole Has?an?appointment?in?October?and?I?recommend?he?follow- up?with?endocrinology?as?recommended Orders: Referrals Dermatology Referral L70.0 - Acne vulgaris
== END 2024-08-25 17:05 | disposition home or self-care (01) ==
LOC: HO.HMCFM 09:35
PROVIDERS: PCP Family Medicine; Visit Provider Family Medicine
DX: R00.0 Tachycardia, unspecified (principal); E05.00 Thyrotoxicosis with diffuse goiter without thyrotoxic crisis or storm

== ENCOUNTER → 2024-08-25 09:35 | Outpatient (BNVA) | payer OTHER, SELFPAY | PROVIDERS: PCP Family Medicine; Visit Provider Family Medicine ==

== ENCOUNTER 2024-10-31 15:09 | Outpatient (AMB) | payer OTHER, SELFPAY ==
--- NOTE | 2024-10-31 15:13 | MHC.OFFVIS ---
Vital Signs 10/31/24 15:17 Height 5 ft 10 in Weight 190 lb 7.67 oz BMI 27.3 BP 100/60 Blood Pressure Location Rt brachial Position Sitting Pulse 76 Pulse Source Pulse Oximeter Pulse Oximetry (%) 98 Oxygen Delivery Method Room Air Intake Visit Reasons: Thyrotoxicosis with diffuse goiter w/o thyrotoxic Intake Note: Patient present today for Thyrotoxicosis with diffuse goiter w/o thyrotoxic office visit. Allergies Retin-A Allergy (Unknown, Uncoded 07/15/24 15:46) unknown Medication List - Last Reconciled 10/31/24 by Yaquelin Benítez MD clindamycin phosphate 1% 1 appl topical BID methimazole 10 mg PO DAILY HPI Comments Details: 23-year-old male here today for initial evaluation of Graves disease. Diagnosed in April 2024. Hospitalized in April 2024 , was diagnosed with pericaridits, and also found to have Graves disease based on blood work saw [facility] Endocrinology May 2024 Started on methimazole 10 mg daily , taking it regularly In June 2024, again went to the ED for throat pain, resolved with pain meds In May 17 was having chest discomfort/ pain , shoulder pain. Came on suddenly. No palpitations . No loose stools. No heat intolerance. No diaphoresis. Lost 10 lbs and gained it back since starting methimazole. Patient currently denies , hair loss, anxiety, , mood changes, low energy, changes in appearance of eyes or vision changes, tremors, increased diaphoresis or dry skin. ?Reports mild tremors. Patient denies any difficulty swallowing, pain on swallowing or voice changes or difficulty breathing. Patient denies any history of childhood neck radiation. Denies having ever used lithium, amiodarone or biotin supplements. Patient denies any family history of thyroid cancer or thyroid disease. Occasional alcohol use No more smoking Quit 5 years ago Marijuana once in a few weeks Interval history Labs from 08/11/2024 still showed suppressed TSH of less than 0.1 with normal free T4. We continued him on methimazole 10 mg daily which he is currently on. No palpitations, tremors, no heat intolerance, or excessive diaphoresis, normal bowel movements. Physical exam General: sitting comfortably in no acute distress HEENT: normocephalic/atraumatic, EOM intact, moist oral mucosa Neck: supple, symmetrical, mildly prominent thyroid , no dorsocervical or supraclavicular fat pads Cardiac: normal heart sounds Pulm: normal breath sounds B/L, no added breath sounds Abd: not distended, no tenderness Extremities: no edema, no signs of myxedema, has a mild tremor Neuro: AAO x3, Speech: normal, no facial droop, moving all 4 extremities Laboratory Tests 08/01/24 08/09/24 16:09 15:32 TSH < 0.01 L < 0.01 L Free T4 1.34 1.62 Total T3 273 H Thyroid Stim Immunoglob 238 H Thyroid Peroxidase Ab 3 TSH Receptor Ab 6.24 H PFSH Surgical History H/O left knee surgery Family History Mother No problems noted. Father No problems noted. 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 Last set of labs are from July 2024, which showed suppressed TSH, free T4 was normal and we continued him on methimazole 10 mg daily, he was supposed to get labs in 6 weeks but he did not get those repeated. No signs of Graves orbitopathy on exam. He does not have any eye symptoms. Discussed with patient that about 30% of the patients have remission after 12-18 months of treatment with methimazole. More recent data has shown longer periods of treatment resulting in better remission rates as well. At this time we will plan to continue treatment with methimazole and continue adjusting the dose as needed. In the long run if she does not have remission, we also briefly discussed definitive therapy options of radioactive iodine ablation and total thyroidectomy and the need for requiring long-term levothyroxine therapy after those procedures. Plan: -already has orders for TSH, free T4, total T3 to be done now, we will reach out with the results and see if methimazole needs to be adjusted -continue methimazole 10 mg daily -follow up in 3 months The following were discussed as potential side effects of methimazole: - Serious skin rashes - nausea, vomiting, or severe hepatic injury - Agranulocytosis: a rare side effect of methimazole involves a severe decrease in the production of white blood cells. This condition is extremely serious, but affects only one out of every 200 to 500 people who take an antithyroid drug. Agranulocytosis more commonly occurs within the first three months of starting treatment with an antithyroid drug, but can occur at any time. If patient develops a fever (temperature above 100.5F), or other signs or symptoms of infection, she should stop taking the tapazole and immediately have a complete blood count (CBC) done. Serious and potentially life threatening infections, or even , can occur before agranulocytosis resolves. However, once the antithyroid drug is stopped, agranulocytosis usually resolves within a week. - Arthralgias, myalgias - Renal: Nephritis - Fever Patient will stop medication and call our office if these occur. Plan see above Patient Instructions: Do blood work Continue methimazole 10 mg daily Follow up in 3 months The following were discussed as potential side effects of methimazole: - Serious skin rashes - nausea, vomiting, or severe hepatic injury - Agranulocytosis: a rare side effect of methimazole involves a severe decrease in the production of white blood cells. This condition is extremely serious, but affects only one out of every 200 to 500 people who take an antithyroid drug. Agranulocytosis more commonly occurs within the first three months of starting treatment with an antithyroid drug, but can occur at any time. If patient develops a fever (temperature above 100.5F), or other signs or symptoms of infection, she should stop taking the tapazole and immediately have a complete blood count (CBC) done. Serious and potentially life threatening infections, or even , can occur before agranulocytosis resolves. However, once the antithyroid drug is stopped, agranulocytosis usually resolves within a week. - Arthralgias, myalgias - Renal: Nephritis - Fever Patient will stop medication and call our office if these occur. Coding Level of Care Code Est Pt Level 3 (72975) Diagnoses Graves disease E05.00
[2024-10-31 15:17] VITALS: BP 100/60; PULSE 76; O2SAT 98; BMI 27.3
--- OUTSIDE RECORDS SUMMARY | 2024-10-31 17:20 | XMS_ITS | Clinical Summary ---
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 Name Role Phone Unavailable Primary Care Provider Unavailabl e Social History Tobacco Use Types Packs/Day Years Used Date Smoking Tobacco: Never Assessed Sex and Gender Information Value Date Recorded Sex Assigned at Male 06/23/2022 10:22 AM EDT Legal Sex Male 10:22 AM EDT Gender Identity Male 06/23/2022 10:22 AM EDT Sexual Orientation Straight 06/23/2022 10 :22 AM EDT Last Filed Vital Signs Vital Sign Reading Time Taken Comments Blood Pressure - - Pulse - - Temperature - - Respiratory Rate - - Oxygen Saturation - - Inhaled Oxygen Concentration - - Weight 80.1 kg (176 lb 9.6 oz) 09/26/2019 12:02 AM EST Height 172 cm (5' 7.72 ) 09/26/2019 12:02 AM EST Body Mass Index 27.08 09/26/2019 12:02 AM EST Plan of Treatment Health Maintenance Due Date Last Done Comments Depression Screening 1998 HIV Screening 1998 SDOH Screening 1998 Alcohol/Substance Use Screening 2010 Tobacco Screening 2010 Family Planning (PISQ) 2013 HPV Vaccines (1 - Male 3-dos e series) 2013 Hepatitis C Screening 2016 DTaP/Tdap/Td Vaccines (1 - Tdap) 2017 Hepatitis B Vaccines (1 of 3 - 19+ 3-dose series) 2017 COVID-19 Vaccine (1 - 2023-2 5 season) 2024 Influenza Vaccine (#1) 2024 Zoster Vaccines (1 of 2) 2048 RSV Patients and Pa tients Aged 60 years or older (1 - 1-dose 75+ series) 2073 HIB Vaccines Aged Out No longer eligi ble based on patient's age to complete this topic Hepatitis A Vaccines Aged Out No long er eligible based on patient's age to complete this topic IPV Vaccines Aged Out No longer eligi ble based on patient's age to complete this topic Meningococcal Vaccine Aged Out No cleo petey eligible based on patient's age to complete this topic Pneumococcal Vaccine: Pediat rics (0 to 5 Years) and At-Risk Patients (6 to 49) Years) Aged Out No longer eligible b ased on patient's age to complete this topic RSV under 20 months Aged Out No longe r eligible based on patient's age to complete this topic Rotavirus Vaccines Aged Out No longer eligible based on patient's age to complete this topic Insurance [facility]
== END 2024-10-31 15:33 | disposition home or self-care (01) ==
PROVIDERS: PCP Family Medicine; Visit Provider Student in an Organized Health Care Education/Training Program
DX: E05.00 Thyrotoxicosis with diffuse goiter without thyrotoxic crisis or storm (principal)
CPT/HCPCS: 99213

== ENCOUNTER 2024-10-31 15:09 | Outpatient (REF) | payer OTHER, SELFPAY ==
[2024-10-31 16:25] LABS: MANUAL DIFF FLAG NO
[2024-10-31 17:02] LABS: Basophils Percent Auto 0.6 % (0-2); Eosinophils Absolute Auto 0.1 X10*3/uL (0.0-0.4); Eosinophils Percent Auto 1.8 % (0-4); Hematocrit 44.4 % (42.0-52.0); Hemoglobin 14.6 g/dl (14.0-18.0); Imm Gran Abs Auto 0.01 X10*3/uL (0.00-0.03); Imm Gran Pct Auto 0.3 % (0.0-0.4); Lymphocytes Absolute Auto 1.7 X10*3/uL (1.2-4.9); Lymphocytes Percent Auto 52.8 % (20-40); Mean Corpuscular HGB Conc 32.9 g/dl (31.0-36.0); Mean Corpuscular Hemoglobin 25.5 pg (27.0-33.0); Mean Corpuscular Volume 77.5 fL (80.0-98.0); Monocytes Absolute Auto 0.2 X10*3/uL (0.1-1.2); Monocytes Percent Auto 6.1 % (2-11); Neutrophils Absolute Auto 1.3 x10*3/uL (2.0-8.3); Neutrophils Percent Auto 38.4 % (45-73); Platelet Count 191 X10*3/uL (160-400); Red Blood Count 5.73 X10*6/uL (4.60-5.80); Red Cell Distribution Width 14.7 % (11.0-16.0); White Blood Count 3.3 X10*3/uL (4.8-10.8)
[2024-10-31 17:53] LABS: Free T4 (Free Thyroxine) 0.88 ng/dL (0.71-1.85); Thyroid Stimulating Hormone 0.08 uIU/mL (0.32-4.0)
--- OUTSIDE RECORDS SUMMARY | 2024-10-31 17:58 | XMS_ITS | Clinical Summary ---
Author Organization [employer] Address [address] [place] [address] Care Team Providers Care Beach Lifeguard Name Role Phone Unavailable Primary Care Provider [...] patient's age to complete this topic Insurance [facility]
[2024-11-01 03:59] LABS: Triiodothyronine T3 Total 104 ng/dL (76-181)
== END 2024-10-31 15:10 | disposition home or self-care (01) ==
LOC: HO.LAB 15:09
PROVIDERS: PCP Family Medicine; Visit Provider Student in an Organized Health Care Education/Training Program
DX: E05.00 Thyrotoxicosis with diffuse goiter without thyrotoxic crisis or storm (principal)
CPT/HCPCS: 36415; 84439; 84443; 84480; 85025; 99212

== ENCOUNTER 2024-11-23 15:33 | Outpatient (AMB) | payer OTHER, SELFPAY ==
--- NOTE | 2024-11-23 16:05 | MHC.PC.OV ---
Vital Signs 11/23/24 16:24 Height 5 ft 10 in Weight 195 lb 2 oz BMI 28.0 BP 130/80 Blood Pressure Location Rt brachial Position Sitting Respiration 16 Pulse 54 Pulse Source Pulse Oximeter Temp 98.8 F Temp Source Oral Pulse Oximetry (%) 100 Oxygen Delivery Method Room Air Intake Visit Reasons: f/u tachycardia, graves disease Allergies Retin-A Allergy (Unknown, Uncoded 07/15/24 15:46) unknown Tobacco use date assessed: 07/15/24 Dental Screening Dental Screen Date: 07/15/24 HPI f/u tachycardia, graves disease HPI Details Pt here to f/u Graves w/ Tachycardia. Has appt w/ Cardiology Has an appt. with endocrinology 01/31/25. Continues to take methimazole 10mg daily. Heart rate within normal range today. He does note some fatigue. Ongoing acne. This has been improving. [facility] Surgical History H/O left knee surgery Family History Mother No problems noted. Father No problems noted. 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 1. Little interest or pleasure in doing things: not at all 2. Feeling down, depressed, or hopeless: not at all 3. Trouble falling or staying asleep, or sleeping too much: not at all 4. Feeling tired or having little energy: more than half the days 5. Poor appetite or overeating: not at all 6. Feeling bad about yourself - or that you are a failure or have let yourself or your family down: not at all 7. Trouble concentrating on things, such as reading the newspaper or watching television: not at all 8. Moving or speaking so slowly that other people could have noticed. Or the opposite - being so fidgety or restless that you have been moving around a lot more than usual: not at all 9. Thoughts that you would be better off or of hurting yourself in some way: not at all Total score: 2 Source: Developed by Drs. Wing Harris, Connie Yepez, Jeff Dennis and colleagues, with an educational vane from [employer] Thrive Questionnaire Date Thrive assessed: 11/17/24 I am a: Patient What is your living situation today?: I have a steady place to live Within the past 12 months, did the food you bought not last and you didn't have the money to get more?: Sometimes True Within the past 12 months, did you worry whether your food would run out before you got money to buy more?: Sometimes True Do you have trouble paying for medicines?: No Do you have trouble getting transportation to medical appointments?: No Do you have trouble paying your heating and electricity bill?: Yes Do you have trouble taking care of your child, family member or friend?: No Do you have trouble with day-to-day activities such as bathing, preparing meals, shopping, managing finances, etc.?: No Are you currently unemployed and looking for a job?: No Are you interested in more education?: Yes Please select the resources that you would like help with: Education Currently or been in a relationship where the following occur: No concerns reported THRIVE Score: 3 AUDIT C Alcohol Use Questionnaire (AUDIT-C) 1. How often do you have a drink containing alcohol?: Monthly or less 2. How many drinks containing alcohol do you have on a typical day when you are drinking?: 1 or 2 3. How often do you have six or more drinks on one occasion?: Never Total Score: 1 JOE-7 AMB Questionnaire JOE-7 Date JOE - 7 assessed: 07/15/24 Feeling nervous, anxious, or on edge: 0 = Not at all Not being able to stop or control worryin = Not at all Worrying too much about different things: 1 = Several days Trouble relaxin = Not at all Being so restless that it is hard to sit still: 0 = Not at all Becoming easily annoyed or irritable: 0 = Not at all Feeling afraid as if something awful might happen: 0 = Not at all Total JOE-7 score (0-4 normal; 5-9 mild; 10-14 moderate; 15-21 severe): 1 Source: Developed by Drs. Wing Harris, Connie Yepez, Jeff Dennis and colleagues, with an educational vane from [employer] Review of Systems Const Denies chills, Reports fatigue, Denies fever(s), Denies headache(s) and Denies weakness ENT Denies dizziness and Denies headache(s) Card Denies chest pain, Denies lightheadedness, Denies dyspnea and Denies other (Palpitations) Resp Denies cough, Denies dyspnea, Denies wheezing and Denies other ( shortness of breath) Musc Denies numbness and Denies tingling Neuro Denies dizziness, Denies headache(s), Denies numbness, Denies tingling, Denies paresthesias and Denies weakness Psych Denies anxiety and Denies depression Endo Reports fatigue Aller/Immun Denies wheezing Physical exam (Primary Care) Tobacco/Smoking Status: Tobacco use Status Tobacco use date assessed 07/15/24 11/23/24 16:09 Patient Tobacco Use Status Former Tobacco user 11/23/24 16:09 e-Cigarette/Vaping Use Never Used 11/23/24 16:09 PHQ-9: PHQ-9 Score PHQ-9: Total score 2 11/23/24 16:11 Thrive Assessment: Date of Thrive Assessment Date Thrive assessed 11/17/24 11/23/24 16:09 Currently or been in a relationship where the following occur: No concerns reported Const General: no acute distress and well developed Nutritional Appearance: well nourished Orientation/consciousness: patient oriented x3 HENMT Head: Yes normocephalic and Yes atraumatic Eyes General: appearance normal, both eyes and all related structures Pupils: Equal, round and reactive pupils present EOM: EOMs intact bilaterally Resp Effort & Inspection: normal respiratory effort Auscultation: clear to auscultation bilaterally Cardio Rate: regular rate Rhythm: regular rhythm Heart sounds: S1 normal heart sound present, S2 normal heart sound present, no gallops, no murmurs and no rubs Neuro General: patient oriented x3 and gait normal Cranial nerves: Yes Equal, round and reactive pupils present Psych Affect: normal affect Coding Level of Care Code Est Pt Level 3 (68745) Diagnoses Graves disease E05.00 Fatigue R53.83 Acne vulgaris L70.0 Acne type: acne vulgaris Assessment & Plan Assessment & Plan (1) Graves disease: Code(s): E05.00 - Thyrotoxicosis with diffuse goiter without thyrotoxic crisis or storm Category: Medical Plan: Patient?with?Graves?disease?on?methimazole?and?prior?tachycardia. Taking?methimazole?and her?rate?is?within?normal?range He?does?note?some?fatigue?which?may?be?secondary?to?methimazole?itself?though?this?is?uncommon. Recent?thyroid?levels?checked?October?,?Does?not?appear?to?be?overcorrected?at?this?time CBC?also?normal Has?additional?labs?ordered?by?his?project intern?and?upcoming?follow-up?in?January. Has?appointment?with?cardiology?later?this?month. (2) Fatigue: Code(s): R53.83 - Other fatigue Category: Medical Plan: As?some?fatigue Unclear?cause?though?may?be?due?to Graves?itself?and?treatment. Encouraged?plenty?of?rest?and?exercise (3) Acne: Code(s): L70.9 - Acne, unspecified Category: Medical Qualifiers: Acne type: acne vulgaris Qualified Code(s): L70.0 - Acne vulgaris Plan: Ongoing?acne?though?improved?from?prior?visit Will?try?different He?has?an?appointment?with?dermatology?but?not?for?several?months. Orders: Orders Comprehensive Met. Panel Today R53.83 - Other fatigue Medications: New adapalene 0.1% (Differin) 1 appl topical DAILY 30 days 59 mL 1RF
[2024-11-23 16:24] VITALS: BP 130/80; PULSE 54; RESP 16; TEMP 37.1; O2SAT 100; BMI 28.0
--- OUTSIDE RECORDS SUMMARY | 2024-11-23 17:45 | XMS_ITS | Clinical Summary ---
Author Organization [employer] Address [address] [place] [address] Care Team Providers Care Retort Feeder Ground Bone Name Role Phone Unavailable Primary Care Provider [...] patient's age to complete this topic Insurance [facility]
== END 2024-11-23 16:23 | disposition home or self-care (01) ==
LOC: HO.HMCFM 15:33
PROVIDERS: PCP Family Medicine; Visit Provider Family Medicine
DX: E05.00 Thyrotoxicosis with diffuse goiter without thyrotoxic crisis or storm (principal); R53.83 Other fatigue; L70.0 Acne vulgaris

== ENCOUNTER → 2024-11-23 15:33 | Outpatient (BNVA) | payer OTHER, SELFPAY | PROVIDERS: PCP Family Medicine; Visit Provider Family Medicine | DX: E05.00 Thyrotoxicosis with diffuse goiter without thyrotoxic crisis or storm (principal); R53.83 Other fatigue; L70.0 Acne vulgaris | CPT/HCPCS: 99212 ==

== ENCOUNTER 2024-12-01 14:05 | Outpatient (AMB) | payer OTHER, SELFPAY ==
--- NOTE | 2024-12-01 14:08 | A.OFFVIS_ITS ---
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 Patient 23-year-old male in April was admitted to [facility] with chest pain at that time was having tachycardia. He subsequently was diagnose with pericarditis and was given he says anti-inflammatory for only about 2 weeks. That included colchicine and PRN nonsteroidals. However since then he has not had any significant symptoms. He was also at that time diagnose with Graves disease and is currently on methimazole. He had an echocardiogram July which had shown normal LV ejection fraction without any significant wall motion abnormality or significant pericardial effusion. Also had a Holter monitor at that time which had shown frequent sinus tachycardia. Her patient currently denies any symptoms. He remains pretty active. Denies any significant exertional chest pain or shortness of breath. Denies any palpitations. No lightheadedness, syncope. [facility] Surgical History H/O left knee surgery Family History Mother No problems noted. Father No problems noted. 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 Current occupational exposures/hazards: No Cognitive needs: No Hearing needs: No Review of Systems Const Denies chills, Denies daytime sleepiness, Denies fatigue, Denies fever(s), Denies frequent falls, Denies poor appetite, Denies snoring, Denies stops breathing during sleep, Denies weakness, Denies weight gain and Denies weight loss Eyes Denies loss of vision ENT Denies dizziness and Denies hearing loss Card Denies chest pain, Denies claudication, Denies leg edema, Denies lightheadedness, Denies palpitations, Denies dyspnea, Denies dyspnea on exertion and Denies orthopnea Resp Denies cough, Denies excessive phlegm production, Denies dyspnea, Denies dyspnea on exertion, Denies snoring and Denies wheezing GI Denies abdominal pain, Denies hematochezia, Denies change in bowel habits, Denies nausea and Denies vomiting Denies dysuria and Denies urinary frequency Musc Denies arthralgias, Denies muscle weakness, Denies numbness and Denies other (frequent falls) Skin/Breast Denies nail changes and Denies rash Neuro Denies Abnormal speech present, Denies dizziness, Denies frequent falls, Denies loss of vision, Denies memory loss, Denies numbness and Denies weakness Psych Denies depression and Denies memory loss Endo Denies fatigue and Denies palpitations Juliocesar/Lymph Reports easy bruising and Reports other (anemia) Aller/Immun Denies wheezing Physical Exam Vital Signs: Last Vital Signs Pulse 57 12/01/24 14:09 BP 120/72 12/01/24 14:09 BMI result Body Mass Index 28.2 Const General: cooperative, comfortable, no acute distress, well developed, alert and awake Nutritional Appearance: well nourished and overweight Orientation/consciousness: patient oriented x3 Limitations: no limitations HEENT Head: Yes normocephalic and Yes atraumatic Neck Neck: Yes trachea midline, Yes supple and Yes no JVD Resp Effort & Inspection: normal respiratory effort Auscultation: clear to auscultation bilaterally Cardio Jugular venous distension: no JVD Palpation: normal PMI Rate: regular rate Rhythm: regular rhythm Heart sounds: S1 normal heart sound present, S2 normal heart sound present, no click, no gallops and no murmurs GI Auscultation: normal bowel sounds Skin General skin exam: no rashes or lesions noted Neuro General: patient oriented x3 and no focal motor deficits Speech: No Abnormal speech present Extrem General: Yes no clubbing, cyanosis or edema Office Procedures EKG Details: EKG shows sinus bradycardia with early repolarization changes. There is also suggestion of T-wave inversion in lead 3 and AVF and nonspecific T-wave changes in V5 and V6 [id number], Complete Assessment & Plan Assessment & Plan (1) Pericarditis: Code(s): I31.9 - Disease of pericardium, unspecified Category: Medical Qualifiers: Pericarditis type: unspecified type Plan: Prior history of suspected pericarditis last April. Patient was undertreated for his pericarditis but has currently no symptoms at this point time I do not think he requires any further therapy. Cause of pericarditis unknown question viral infection. Pathophysiology of pericarditis was discussed. (2) Sinus tachycardia: Code(s): R00.0 - Tachycardia, unspecified Category: Medical Plan: Sinus tachycardia noted on Holter monitor in July. He was diagnose hyperthyroidism April. His most likely probably related to hyperthyroidism and high thyroid hormone level. Currently he is at rest bradycardic. Most likely his hypothyroidism under control. Once he is off methimazole and remains euthyroid I will repeat Holter monitor to assess for any presence of sinus tachycardia which could then represent either anxiety related sinus tachycardia or inappropriate sinus tachycardia which may be a target for treatment. Advised to avoid stimulants. No other specific pharmacotherapy is recommended. Will follow up in the clinic if need be. Thank you for allowing me to partake in his care Coding Level of Care Code New Pt Level 4 (27009) Complex EM visit Add On G2211 Diagnoses Pericarditis I31.9 Pericarditis type: unspecified type Sinus tachycardia R00.0 CPT Codes EKG - CPT: 94077-[id number], Complete ([id number])
[2024-12-01 14:09] VITALS: BP 120/72; PULSE 57; BMI 28.2
--- OUTSIDE RECORDS SUMMARY | 2024-12-01 16:53 | XMS_ITS | Clinical Summary ---
Author Organization [employer] Address [address] [facility] [address] [place] [address] Care Team Providers Care Ornamental Metalwork Designer Name Role Phone Unavailable Primary Care Provider [...] patient's age to complete this topic Insurance [facility]
== END 2024-12-01 14:31 | disposition home or self-care (01) ==
LOC: HO.HCS 14:06
PROVIDERS: PCP Family Medicine; Visit Provider Internal Medicine Cardiovascular Disease
DX: I31.9 Disease of pericardium, unspecified (principal); R00.0 Tachycardia, unspecified; R94.31 Abnormal electrocardiogram [ECG] [EKG]
CPT/HCPCS: 93010; 99214; G2211

== ENCOUNTER → 2024-12-01 14:05 | Outpatient (BNVA) | payer OTHER, SELFPAY | PROVIDERS: PCP Family Medicine; Visit Provider Internal Medicine Cardiovascular Disease | DX: I31.9 Disease of pericardium, unspecified (principal); R00.0 Tachycardia, unspecified | CPT/HCPCS: 93005; 99212 ==

== ENCOUNTER 2025-01-31 14:45 | Outpatient (REF) | payer OTHER, SELFPAY ==
[2025-01-31 15:05] LABS: MANUAL DIFF FLAG NO
[2025-01-31 15:47] LABS: Appearance Urine Clear; Color Urine Yellow; Glucose Urine UA Negative (Negative); Leukocyte Esterase Urine Negative (Negative); Nitrite Urine Negative (Negative); Specific Gravity - Urine 1.015 (1.005-1.025); Urine Blood Negative (Negative); Urine Ketones Negative (Negative); Urine Protein Negative (Neg-Trace)
[2025-01-31 15:48] LABS: Basophils Percent Auto 0.6 % (0-2); Eosinophils Absolute Auto 0.1 X10*3/uL (0.0-0.4); Eosinophils Percent Auto 1.5 % (0-4); Hematocrit 43.8 % (42.0-52.0); Hemoglobin 14.3 g/dl (14.0-18.0); Imm Gran Abs Auto 0.01 X10*3/uL (0.00-0.03); Imm Gran Pct Auto 0.3 % (0.0-0.4); Lymphocytes Absolute Auto 1.6 X10*3/uL (1.2-4.9); Lymphocytes Percent Auto 48.5 % (20-40); Mean Corpuscular HGB Conc 32.6 g/dl (31.0-36.0); Mean Corpuscular Hemoglobin 26.2 pg (27.0-33.0); Mean Corpuscular Volume 80.2 fL (80.0-98.0); Monocytes Absolute Auto 0.2 X10*3/uL (0.1-1.2); Monocytes Percent Auto 7.2 % (2-11); Neutrophils Absolute Auto 1.4 x10*3/uL (2.0-8.3); Neutrophils Percent Auto 41.9 % (45-73); Platelet Count 182 X10*3/uL (160-400); Red Blood Count 5.46 X10*6/uL (4.60-5.80); Red Cell Distribution Width 13.2 % (11.0-16.0); White Blood Count 3.3 X10*3/uL (4.8-10.8)
[2025-01-31 16:20] LABS: Alanine Aminotransferase 39 U/L (0-40); Albumin Level 4.8 g/dL (3.5-5.0); Alkaline Phosphatase 304 U/L (39-117); Anion Gap 12 (12-20); Aspartate Amino Transferase 31 U/L (5-37); Bilirubin Total 0.3 mg/dL (0.0-1.0); Blood Urea Nitrogen 18 mg/dL (9-16); Calcium 9.6 mg/dL (8.4-10.2); Carbon Dioxide 28 mmol/L (22-29); Chloride 103 mmol/L (96-108); Estimated Glomerular Filt Rate > 60; Glucose Fasting 83 mg/dL (60-99); Glucose Random 83 mg/dL (60-115); Potassium 4.5 mmol/L (3.3-5.1); Sodium 138 mmol/L (135-145); Total Protein 7.5 g/dL (6.5-8.0)
[2025-01-31 16:32] LABS: Free T4 (Free Thyroxine) 0.92 ng/dL (0.71-1.85)
[2025-01-31 16:36] LABS: TSH reflex Free T4 7.12 uIU/mL (0.32-4.0); Thyroid Stimulating Hormone 7.12 uIU/mL (0.32-4.0)
--- OUTSIDE RECORDS SUMMARY | 2025-01-31 17:48 | XMS_ITS | Clinical Summary ---
Author Organization [facility] [employer] Address [address] [facility] [address] [place] [address] Care Team Providers Care Correctional Supervisor Lieutenant Name Role Phone Unavailable Primary Care Provider [...] 1998 HIV Screening 1998 SDOH Screening 1998 Disability Screening 1998 Alcohol/Substance Use Screening 2010 Tobacco Screening 2010 Family Planning (PISQ) 2013 HPV Vaccines (1 - Male 3-dos e series) 2013 Hepatitis C Screening 2016 DTaP/Tdap/Td Vaccines (1 - Tdap) 2017 Hepatitis B Vaccines (1 of 3 - 19+ 3-dose series) 2017 COVID-19 Vaccine (1 - 2023-2 5 season) 2024 Influenza Vaccine (Season Ended) 2025 Zoster Vaccines (1 of 2) 2048 RSV [...] patient's age to complete this topic Meningococcal B Vaccine Aged Out No l onger eligible based on patient's age to complete [...] patient's age to complete this topic [place] [address] [address] [place] [address]
[2025-02-01 05:35] LABS: Triiodothyronine T3 Total 116 ng/dL (76-181)
[2025-02-05 17:15] LABS: Testosterone, Free 75.6 pg/mL (35.0-155.0); Testosterone, Total 378 ng/dL (250-1100)
== END 2025-01-31 14:46 | disposition home or self-care (01) ==
LOC: HO.LAB 14:45
PROVIDERS: PCP Family Medicine; Visit Provider Student in an Organized Health Care Education/Training Program
DX: E05.00 Thyrotoxicosis with diffuse goiter without thyrotoxic crisis or storm (principal); Z00.00 Encounter for general adult medical examination without abnormal findings; R53.83 Other fatigue
CPT/HCPCS: 36415; 80053; 81003; 84402; 84403; 84439; 84443; 84480; 85025; 99212

== ENCOUNTER 2025-01-31 15:07 | Outpatient (AMB) | payer OTHER, SELFPAY ==
[2025-01-31 15:11] VITALS: BP 120/84; PULSE 59; O2SAT 97; BMI 29.3
--- NOTE | 2025-01-31 15:11 | A.OFFVIS_ITS ---
Vital Signs 01/31/25 15:11 Height 5 ft 10 in Weight 203 lb 14.841 oz BMI 29.3 BP 120/84 Blood Pressure Location Lt brachial Position Sitting Pulse 59 Pulse Source Pulse Oximeter Pulse Oximetry (%) 97 Oxygen Delivery Method Room Air Intake Visit Reasons: Thyrotoxicosis with diffuse goiter w/o thyrotoxic Intake Note: Patient present today for Thyrotoxicosis with diffuse goiter w/o Thyrotoxic. Refrigeration Brazer/Solderer Required: No Accompanied by: Self / Same As Patient Allergies Retin-A Allergy (Unknown, Uncoded 01/31/25 15:16) unknown Medication List - Last Reconciled 01/31/25 by Yaquelin Benítez MD adapalene 0.1% (Differin) 1 appl topical DAILY 30 days clindamycin phosphate 1% 1 appl topical BID methimazole 10 mg PO DAILY HPI Comments Details: 23-year-old male here today for follow up of Graves disease. HPI Diagnosed in April 2024. Hospitalized in April 2024 , was diagnosed with pericaridits, and also found to have Graves disease based on blood work saw [facility] Endocrinology May 2024 Started on methimazole 10 mg daily , taking it regularly In June 2024, again went to the ED for throat pain, resolved with pain meds In May 17 was having chest discomfort/ pain , shoulder pain. Came on suddenly. No palpitations . No loose stools. No heat intolerance. No diaphoresis. Lost 10 lbs and gained it back since starting methimazole. Patient currently denies , hair loss, anxiety, , mood changes, low energy, changes in appearance of eyes or vision changes, tremors, increased diaphoresis or dry skin. ?Reports mild tremors. Patient denies any difficulty swallowing, pain on swallowing or voice changes or difficulty breathing. Patient denies any history of childhood neck radiation. Denies having ever used lithium, amiodarone or biotin supplements. Patient denies any family history of thyroid cancer or thyroid disease. Occasional alcohol use No more smoking Quit 5 years ago Marijuana once in a few weeks Labs from 08/11/2024 still showed suppressed TSH of less than 0.1 with normal free T4. Interval history Labs 10/31/2024 showed TSH low at 0.08, free T4 0.88, total T3 104 We continued him on methimazole 10 mg daily which he promises adherence to. No palpitations, tremors, no heat intolerance, or excessive diaphoresis, normal bowel movements. Reports tiredness GAined 5 to 6 lbs He was supposed to get blood work in December 2024 prior to this follow up, however got blood work done today, results are in process. Physical exam General: sitting comfortably in no acute distress HEENT: normocephalic/atraumatic, EOM intact, moist oral mucosa Neck: supple, symmetrical, mildly prominent thyroid , no dorsocervical or supraclavicular fat pads Cardiac: normal heart sounds Pulm: normal breath sounds B/L, no added breath sounds Abd: not distended, no tenderness Extremities: no edema, no signs of myxedema, has a mild tremor Neuro: AAO x3, Speech: normal, no facial droop, moving all 4 extremities Laboratory Tests 08/01/24 08/09/24 16:09 15:32 TSH < 0.01 L < 0.01 L Free T4 1.34 1.62 Total T3 273 H Thyroid Stim Immunoglob 238 H Thyroid Peroxidase Ab 3 TSH Receptor Ab 6.24 H Laboratory Tests 10/31/24 16:24 TSH 0.08 L Free T4 0.88 Total T3 104 PFSH Surgical History H/O left knee surgery Family History Mother No problems noted. Father No problems noted. 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 Labs 10/31/2024 showed TSH low at 0.08, free T4 0.88, total T3 104 We continued him on methimazole 10 mg daily which he promises adherence to. He was supposed to get blood work in December 2024 prior to this follow up, however got blood work done today, results are in process. No signs of Graves orbitopathy on exam. He does not have any eye symptoms. Discussed with patient that about 30% of the patients have remission after 12-18 months of treatment with methimazole. More recent data has shown longer periods of treatment resulting in better remission rates as well. At this time we will plan to continue treatment with methimazole and continue adjusting the dose as needed. In the long run if she does not have remission, we also briefly discussed definitive therapy options of radioactive iodine ablation and total thyroidectomy and the need for requiring long-term levothyroxine therapy after those procedures. Plan: -follow up results of, thyroid function testsw, LFTs and CBC e will reach out with the results and see if methimazole needs to be adjusted -continue methimazole 10 mg daily -follow up in 4 months The following were discussed as potential side effects of methimazole: - Serious skin rashes - nausea, vomiting, or severe hepatic injury - Agranulocytosis: a rare side effect of methimazole involves a severe decrease in the production of white blood cells. This condition is extremely serious, but affects only one out of every 200 to 500 people who take an antithyroid drug. Agranulocytosis more commonly occurs within the first three months of starting treatment with an antithyroid drug, but can occur at any time. If patient develops a fever (temperature above 100.5F), or other signs or symptoms of infection, she should stop taking the tapazole and immediately have a complete blood count (CBC) done. Serious and potentially life threatening infections, or even , can occur before agranulocytosis resolves. However, once the a ntithyroid drug is stopped, agranulocytosis usually resolves within a week. - Arthralgias, myalgias - Renal: Nephritis - Fever Patient will stop medication and call our office if these occur. Plan see above Coding Level of Care Code Est Pt Level 3 (10483) Diagnoses Graves disease E05.00
== END 2025-01-31 15:33 | disposition home or self-care (01) ==
LOC: HO.ENCR 15:08
PROVIDERS: PCP Family Medicine; Visit Provider Student in an Organized Health Care Education/Training Program
DX: E05.00 Thyrotoxicosis with diffuse goiter without thyrotoxic crisis or storm (principal)
CPT/HCPCS: 99213

== ENCOUNTER 2025-04-19 15:34 | Outpatient (AMB) | payer OTHER, SELFPAY ==
--- NOTE | 2025-04-19 15:42 | MHC.PC.OV ---
Vital Signs 04/19/25 16:00 Height 5 ft 10 in Weight 197 lb 4 oz BMI 28.3 BP 118/58 L Blood Pressure Location Rt brachial Position Sitting Respiration 16 Pulse 53 Pulse Source Pulse Oximeter Temp 97.6 F Temp Source Oral Pulse Oximetry (%) 99 Oxygen Delivery Method Room Air Intake Visit Reasons: f/u chronic conditions Intake Note: patient here for follow up on chronic conditions Communications Administrator Required: No Allergies Retin-A Allergy (Unknown, Uncoded 01/31/25 15:16) unknown Medication List - Last Reconciled 04/19/25 by Ravindra Plummer MD methimazole 2.5 mg (1/2 x 5 mg) PO DAILY Tobacco use date assessed: 04/19/25 Dental Screening Dental Screen Date: 04/19/25 Did you have a dental visit in the last 12 months?: Yes Did you have a dental problem in the last 6 months where you did not have access to dental care?: No Was dental information given to patient?: Patient has dentist HPI f/u chronic conditions HPI Details Patient presents for follow-up fatigue Now followed by Endocrinology for Graves disease and notes that energy is improving. He is getting regular exercise. He is sleeping better. Fatigue has mostly resolved Patient also notes bilateral knee pain which is intermittent in nature. In surrounds kneecap. Pain sometimes at rest and sometimes with activity or standing PFSH Surgical History H/O left knee surgery Family History Mother No problems noted. Father No problems noted. 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 Current occupational exposures/hazards: No Cognitive needs: No Hearing needs: No Vision needs: No Questionnaire Thrive Questionnaire Date Thrive assessed: 11/17/24 I am a: Patient What is your living situation today?: I have a steady place to live Within the past 12 months, did the food you bought not last and you didn't have the money to get more?: Sometimes True Within the past 12 months, did you worry whether your food would run out before you got money to buy more?: Sometimes True Do you have trouble paying for medicines?: No Do you have trouble getting transportation to medical appointments?: No Do you have trouble paying your heating and electricity bill?: Yes Do you have trouble taking care of your child, family member or friend?: No Do you have trouble with day-to-day activities such as bathing, preparing meals, shopping, managing finances, etc.?: No Are you currently unemployed and looking for a job?: No Are you interested in more education?: Yes Please select the resources that you would like help with: Education Currently or been in a relationship where the following occur: No concerns reported THRIVE Score: 3 JOE-7 AMB Questionnaire JOE-7 Date JOE - 7 assessed: 07/15/24 Source: Developed by Drs. Wing Harris, Connie Yepez, Jeff Dennis and colleagues, with an educational vane from [employer]. Review of Systems Const Denies chills, Denies fatigue, Denies fever(s), Denies headache(s) and Denies weakness ENT Denies dizziness and Denies headache(s) Card Denies chest pain, Denies lightheadedness, Denies dyspnea and Denies other (Palpitations) Resp Denies cough, Denies dyspnea, Denies wheezing and Denies other ( shortness of breath) Musc Details: Bilateral knee pain. See HPI Denies numbness and Denies tingling Neuro Denies dizziness, Denies headache(s), Denies numbness, Denies tingling, Denies paresthesias and Denies weakness Psych Denies anxiety and Denies depression Endo Denies fatigue Aller/Immun Denies wheezing Physical exam (Primary Care) Vital Signs: Last Vital Signs Temp 97.6 F 04/19/25 16:00 Pulse 53 04/19/25 16:00 Resp 16 04/19/25 16:00 BP 118/58 L 04/19/25 16:00 Pulse Ox 99 04/19/25 16:00 Oxygen Delivery Method Room Air 04/19/25 16:00 BMI result Body Mass Index 28.3 Tobacco/Smoking Status: Tobacco use Status Tobacco use date assessed 04/19/25 04/19/25 16:03 Patient Tobacco Use Status Former Tobacco user 04/19/25 15:44 e-Cigarette/Vaping Use Never Used 04/19/25 15:44 Thrive Assessment: Date of Thrive Assessment Date Thrive assessed 11/17/24 04/19/25 15:44 Currently or been in a relationship where the following occur: No concerns reported Const General: no acute distress and well developed Nutritional Appearance: well nourished Orientation/consciousness: patient oriented x3 HENMT Head: Yes normocephalic and Yes atraumatic Eyes General: appearance normal, both eyes and all related structures Pupils: Equal, round and reactive pupils present EOM: EOMs intact bilaterally Resp Effort & Inspection: normal respiratory effort Auscultation: clear to auscultation bilaterally Cardio Rate: regular rate Rhythm: regular rhythm Heart sounds: S1 normal heart sound present, S2 normal heart sound present, no gallops, no murmurs and no rubs Neuro General: patient oriented x3 and gait normal Cranial nerves: Yes Equal, round and reactive pupils present Extrem Other: Bilateral knees: No effusions or tenderness to palpation. No excess warmth or erythema. Normal range of motion No joint space tenderness Psych Affect: normal affect Coding Level of Care Code Est Pt Level 4 (34343) Diagnoses Sinus tachycardia R00.0 Graves disease E05.00 Fatigue R53.83 Bilateral knee pain M25.561; M25.562 Assessment & Plan Assessment & Plan (1) Sinus tachycardia: Code(s): R00.0 - Tachycardia, unspecified Category: Medical (2) Graves disease: Code(s): E05.00 - Thyrotoxicosis with diffuse goiter without thyrotoxic crisis or storm Category: Medical (3) Fatigue: Code(s): R53.83 - Other fatigue Category: Medical (4) Bilateral knee pain: Code(s): M25.561 - Pain in right knee; M25.562 - Pain in left knee Category: Medical Plan Patient's fatigue has improved with treatment of Graves disease. Sinus tachycardia has resolved as well. He is followed by endocrinology and they are continuing methimazole Patient also notes intermittent bilateral knee pain Not always associated with movement or activity and pain occurs after activity as well Likely patellofemoral syndrome Start physical therapy If not improving, will image and consider referral Orders: Orders PT Evaluation and Treatment Today M25.561 - Pain in right knee, M25.562 - Pain in left knee Erythrocyte Sedimentation Rate Today M25.561 - Pain in right knee, M25.562 - Pain in left knee Complete Blood Count Auto Diff Today M25.561 - Pain in right knee, M25.562 - Pain in left knee, Z00.00 - Encounter for general adult medical examination without abnormal findings Comprehensive Met. Panel Today M25.561 - Pain in right knee, M25.562 - Pain in left knee
[2025-04-19 16:00] VITALS: BP 118/58; PULSE 53; RESP 16; TEMP 36.4; O2SAT 99; BMI 28.3
--- OUTSIDE RECORDS SUMMARY | 2025-04-19 16:46 | XMS_ITS | Clinical Summary ---
Author Organization [employer] Address [address] [facility] [address] [place] [address] Care Team Providers Care Fixture Designer Name Role Phone Unavailable Primary Care [...] 2023-2 5 season) 2024 Influenza Vaccine (#1) 2025 Zoster Vaccines (1 of 2) 2048 [...] Years) and At-Risk Patients (6 to 49) Years Aged Out No longer eligible b ased on patient's age to complete this topic RSV under 20 months Aged Out No longe r eligible based on patient's age to complete this topic Rotavirus Vaccines Aged Out No longer eligible based on patient's age to complete this topic Insurance
== END 2025-04-19 16:44 | disposition home or self-care (01) ==
LOC: HO.HMCFM 15:35
PROVIDERS: PCP Family Medicine; Visit Provider Family Medicine
DX: R00.0 Tachycardia, unspecified (principal); E05.00 Thyrotoxicosis with diffuse goiter without thyrotoxic crisis or storm; R53.83 Other fatigue; M25.561 Pain in right knee; M25.562 Pain in left knee

== ENCOUNTER → 2025-04-19 15:34 | Outpatient (BNVA) | payer OTHER, SELFPAY | PROVIDERS: PCP Family Medicine; Visit Provider Family Medicine | DX: E05.00 Thyrotoxicosis with diffuse goiter without thyrotoxic crisis or storm (principal); R00.0 Tachycardia, unspecified; R53.83 Other fatigue; M25.561 Pain in right knee; M25.562 Pain in left knee | CPT/HCPCS: 99212 ==

== ENCOUNTER 2025-06-01 06:07 | Outpatient (REF) | payer OTHER, SELFPAY ==
[2025-06-01 06:32] LABS: MANUAL DIFF FLAG NO
[2025-06-01 07:22] LABS: Hematocrit 42.8 % (42.0-52.0); Hemoglobin 14.4 g/dl (14.0-18.0); Imm Gran Abs Auto 0.02 X10*3/uL (0.00-0.03); Imm Gran Pct Auto 0.5 % (0.0-0.4); Lymphocytes Absolute Auto 1.5 X10*3/uL (1.2-4.9); Mean Corpuscular HGB Conc 33.6 g/dl (31.0-36.0); Mean Corpuscular Hemoglobin 27.0 pg (27.0-33.0); Mean Corpuscular Volume 80.3 fL (80.0-98.0); NRBC Abs Auto 0.000 X10*3/uL (0.0-0.012); NRBC Pct Auto 0.0 /100WBC (0.0-0.2); Platelet Count 217 X10*3/uL (160-400); Red Blood Count 5.33 X10*6/uL (4.60-5.80); White Blood Count 3.7 X10*3/uL (4.8-10.8)
[2025-06-01 08:08] LABS: Gamma Glutamyl Transpeptidase 174 U/L (11-51)
[2025-06-01 08:18] LABS: Alanine Aminotransferase 35 U/L (0-40); Albumin Level 4.5 g/dL (3.5-5.0); Alkaline Phosphatase 224 U/L (39-117); Anion Gap 13 (12-20); Aspartate Amino Transferase 22 U/L (5-37); Blood Urea Nitrogen 18 mg/dL (9-16); Calcium 9.5 mg/dL (8.4-10.2); Carbon Dioxide 27 mmol/L (22-29); Chloride 107 mmol/L (96-108); Estimated Glomerular Filt Rate > 60; Potassium 4.2 mmol/L (3.3-5.1); Sodium 143 mmol/L (135-145); Total Protein 7.5 g/dL (6.5-8.0)
[2025-06-01 08:22] LABS: Thyroid Stimulating Hormone 2.53 uIU/mL (0.32-4.0)
[2025-06-01 08:26] LABS: Free T4 (Free Thyroxine) 0.95 ng/dL (0.71-1.85)
== END 2025-06-01 06:08 | disposition home or self-care (01) ==
LOC: HO.LAB 06:07
PROVIDERS: Absent Provider Student in an Organized Health Care Education/Training Program; PCP Family Medicine; Visit Provider Family Medicine
DX: E05.00 Thyrotoxicosis with diffuse goiter without thyrotoxic crisis or storm (principal); Z00.00 Encounter for general adult medical examination without abnormal findings; M25.561 Pain in right knee; M25.562 Pain in left knee; Z79.899 Other long term (current) drug therapy
CPT/HCPCS: 36415; 80053; 82248; 82977; 84075; 84439; 84443; 84480; 85025; 85652; 99212

== ENCOUNTER 2025-06-01 15:02 | Outpatient (AMB) | payer OTHER, SELFPAY ==
[2025-06-01 15:05] VITALS: BP 122/80; PULSE 57; O2SAT 97; BMI 28.8
--- NOTE | 2025-06-01 15:05 | A.OFFVIS_ITS ---
Vital Signs 06/01/25 15:05 Height 5 ft 10 in Weight 200 lb 13.458 oz BMI 28.8 BP 122/80 Blood Pressure Location Lt brachial Position Sitting Pulse 57 Pulse Source Pulse Oximeter Pulse Oximetry (%) 97 Oxygen Delivery Method Room Air Intake Visit Reasons: Thyrotoxicosis with diffuse goiter w/o thyrotoxic Intake Note: Patient present today for Thyrotoxicosis with diffuse goiter w/o thyrotoxic. Alarm Mechanic Required: No Accompanied by: Self / Same As Patient Allergies Retin-A Allergy (Unknown, Uncoded 06/01/25 15:10) unknown Medication List - Last Reconciled 06/01/25 by Yaquelin Benítez MD methimazole 2.5 mg (1/2 x 5 mg) PO DAILY HPI Comments Details: 24-year-old male here today for follow up of Graves disease. HPI Diagnosed in April 2024. Hospitalized in April 2024 , was diagnosed with pericaridits, and also found to have Graves disease based on blood work saw [facility]ology May 2024 Started on methimazole 10 mg daily , taking it regularly In June 2024, again went to the ED for throat pain, resolved with pain meds In May 17 was having chest discomfort/ pain , shoulder pain. Came on suddenly. No palpitations . No loose stools. No heat intolerance. No diaphoresis. Lost 10 lbs and gained it back since starting methimazole. Patient currently denies , hair loss, anxiety, , mood changes, low energy, crys nges in appearance of eyes or vision changes, tremors, increased diaphoresis or dry skin. ?Reports mild tremors. Patient denies any difficulty swallowing, pain on swallowing or voice changes or difficulty breathing. Patient denies any history of childhood neck radiation. Denies having ever used lithium, amiodarone or biotin supplements. Patient denies any family history of thyroid cancer or thyroid disease. Occasional alcohol use No more smoking Quit 5 years ago Marijuana once in a few weeks Labs from 08/11/2024 still showed suppressed TSH of less than 0.1 with normal free T4. Labs 10/31/2024 showed TSH low at 0.08, free T4 0.88, total T3 104 We continued him on methimazole 10 mg daily which he promises adherence to. Interval history 02/01/2025 : TSH 7.12, free T4 0.92, total T3 116 Dose of methimazole reduced to 2.5 mg daily He was supposed to do blood work in 5 weeks after that but did it on 06/01/2025 TSH 2.53, free T4 0.95 total T3 pending No palpitations, tremors, no heat intolerance, or excessive diaphoresis, normal bowel movements. Physical exam General: sitting comfortably in no acute distress HEENT: normocephalic/atraumatic, EOM intact, moist oral mucosa Neck: supple, symmetrical, mildly prominent thyroid , no dorsocervical or supraclavicular fat pads Cardiac: normal heart sounds Pulm: normal breath sounds B/L, no added breath sounds Abd: not distended, no tenderness Extremities: no edema, no signs of myxedema, has a mild tremor Neuro: AAO x3, Speech: normal, no facial droop, moving all 4 extremities Laboratory Tests 08/01/24 08/09/24 16:09 15:32 TSH < 0.01 L < 0.01 L Free T4 1.34 1.62 Total T3 273 H Thyroid Stim Immunoglob 238 H Thyroid Peroxidase Ab 3 TSH Receptor Ab 6.24 H Laboratory Tests 10/31/24 16:24 TSH 0.08 L Free T4 0.88 Total T3 104 Laboratory Tests 06/01/25 06:31 WBC 3.7 L Neut % (Auto) 48.6 Absolute Neuts (auto) 1.8 L Creatinine 1.24 Estimated GFR > 60 AST 22 ALT 35 Alkaline Phosphatase 224 H TSH 2.53 Free T4 0.95 PFSH Surgical History H/O left knee surgery Family History Mother No problems noted. Father No problems noted. 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 Labs 10/31/2024 showed TSH low at 0.08, free T4 0.88, total T3 104 No signs of Graves orbitopathy on exam. He does not have any eye symptoms. 02/01/2025 : TSH 7.12, free T4 0.92, total T3 116 Dose of methimazole reduced from 10 mg to 2.5 mg daily He was supposed to do blood work in 5 weeks after that but did it on 06/01/2025 TSH 2.53, free T4 0.95 total T3 pending No palpitations, tremors, no heat intolerance, or excessive diaphoresis, normal bowel movements. Discussed with patient that about 30% of the patients have remission after 12-18 months of treatment with methimazole. More recent data has shown longer periods of treatment resulting in better remission rates as well. At this time we will plan to continue treatment with methimazole and continue adjusting the dose as needed. In the long run if she does not have remission, we also briefly discussed definitive therapy options of radioactive iodine ablation and total thyroidectomy and the need for requiring long-term levothyroxine therapy after those procedures. He has had an elevated alkaline phosphatase for the past few blood draws. This has remained stable. Initially we thought that this could be in the setting of hyperthyroidism, fortunately blood work has not worsened while he is taking methimazole. He unfortunately only did blood work today so some of his results are still pending. I would like to see his bone specific alkaline phosphatase, if that is normal and his alkaline phosphatase remains elevated, I will message his primary care physician to let them know to see what further workup needs to be done for liver enzyme elevation evaluation. I discussed this with the patient as well he has a an upcoming appointment with PCP on 06/09/2025 I told him to bring it up as well. Plan: -continue methimazole 2.5 mg daily -follow up in 5-6 months with blood work done before appointment The following were discussed as potential side effects of methimazole: - Serious skin rashes - nausea, vomiting, or severe hepatic injury - Agranulocytosis: a rare side effect of methimazole involves a severe decrease in the production of white blood cells. This condition is extremely serious, but affects only one out of every 200 to 500 people who take an antithyroid drug. Agranulocytosis more commonly occurs within the first three months of starting treatment with an antithyroid drug, but can occur at any time. If patient develops a fever (temperature above 100.5F), or other signs or symptoms of infection, she should stop taking the tapazole and immediately have a complete blood count (CBC) done. Serious and potentially life threatening infections, or even , can occur before agranulocytosis resolves. However, once the antithyroid drug is stopped, agranulocytosis usually resolves within a week. - Arthralgias, myalgias - Renal: Nephritis - Fever Patient will stop medication and call our office if these occur. Plan see above Orders: Orders Thyroid Stimulating Hormone 5 Months E05.00 - Thyrotoxicosis with diffuse goiter without thyrotoxic crisis or storm Free T4 (Free Thyroxine) 5 Months E05.00 - Thyrotoxicosis with diffuse goiter without thyrotoxic crisis or storm Triiodothyronine T3 Total 5 Months E05.00 - Thyrotoxicosis with diffuse goiter without thyrotoxic crisis or storm Medications: Refilled methimazole 2.5 mg (1/2 x 5 mg) PO DAILY 20 tabs 5RF Coding Level of Care Code Est Pt Level 3 (34254) Diagnoses Graves disease E05.00
== END 2025-06-01 15:26 | disposition home or self-care (01) ==
LOC: HO.ENCR 15:03
PROVIDERS: PCP Family Medicine; Visit Provider Student in an Organized Health Care Education/Training Program
DX: E05.00 Thyrotoxicosis with diffuse goiter without thyrotoxic crisis or storm (principal)
CPT/HCPCS: 99213

== ENCOUNTER 2025-08-18 14:39 | Outpatient (AMB) | payer OTHER, SELFPAY ==
--- NOTE | 2025-08-18 14:39 | A.OFFPC_ITS ---
Vital Signs 08/18/25 14:44 Height 5 ft 10 in Weight 202 lb 8 oz BMI 29.1 BP 116/66 Blood Pressure Location Rt brachial Position Sitting Respiration 16 Pulse 87 Pulse Source Pulse Oximeter Temp 97.3 F Temp Source Temporal Artery Scan Pulse Oximetry (%) 98 Oxygen Delivery Method Room Air Intake Visit Reasons: f/u chronic conditions Intake Note: Burak presents in the office today for bilateral knee pain and his graves disease. 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 Had started him on physical therapy for his knees. Pt notes knee pain has been improving. Has been following up with Endo for Graves disease. They reduced methimazole from 10mg to 2.5mg daily. Hx of elevated liver enzymes. Elevated alk phos from most recent labs drawn. [facility] Surgical History H/O left knee surgery Family History Mother No problems noted. Father No problems noted. Other Substance abuse Social History (Updated 08/18/25 @ 14:44 by Miri Pressley CMA) [facility]: [facility] Alcohol intake: current Alcohol intake frequency: holidays/special occasions only Patient Tobacco Use Status: Former Tobacco user Years Smoked: 5 e-Cigarette/Vaping Use: Never Used Second Hand Smoke Exposure: No service: No Current occupational status: employed Current occupation: [employer] Current occupational exposures/hazards: No Cognitive needs: No Hearing needs: No Vision needs: No Questionnaire Thrive Questionnaire Date Thrive assessed: 11/17/24 JOE-7 AMB Questionnaire JOE-7 Date JOE - 7 assessed: 07/15/24 Source: Developed by Drs. Wing Harris, Connie Yepez, Jeff Dennis and colleagues, with an educational vane from [employer]. Review of Systems Const Denies chills, Denies fatigue, Denies fever(s), Denies headache(s) and Denies weakness ENT Denies dizziness and Denies headache(s) Card Denies dyspnea Resp Denies cough, Denies dyspnea, Denies wheezing and Denies other (shortness of breath) Musc Denies numbness and Denies tingling Neuro Denies dizziness, Denies headache(s), Denies numbness, Denies tingling and Denies weakness Psych Denies anxiety and Denies depression Endo Denies fatigue Aller/Immun Denies wheezing Physical exam (Primary Care) Vital Signs: Last Vital Signs Temp 97.3 F 08/18/25 14:44 Pulse 87 08/18/25 14:44 Resp 16 08/18/25 14:44 BP 116/66 08/18/25 14:44 Pulse Ox 98 08/18/25 14:44 Oxygen Delivery Method Room Air 08/18/25 14:44 BMI result Body Mass Index 29.1 Tobacco/Smoking Status: Tobacco use Status Tobacco use date assessed 08/18/25 08/18/25 14:47 Patient Tobacco Use Status Former Tobacco user 08/18/25 14:44 e-Cigarette/Vaping Use Never Used 08/18/25 14:44 Thrive Assessment: Date of Thrive Assessment Date Thrive assessed 11/17/24 08/18/25 14:40 Const General: well developed; No acute distress Nutritional Appearance: well nourished Orientation/consciousness: patient oriented x3 HENMT Head: Yes normocephalic and Yes atraumatic Eyes General: appearance normal, both eyes and all related structures Pupils: Equal, round and reactive pupils present EOM: EOMs intact bilaterally Resp Effort & Inspection: normal respiratory effort Neuro General: patient oriented x3 and gait normal Cranial nerves: Yes Equal, round and reactive pupils present Psych Affect: normal affect Coding Level of Care Code Est Pt Level 4 (60266) Diagnoses Bilateral knee pain M25.561; M25.562 Graves disease E05.00 Elevated liver enzymes R74.8 Elevated alkaline phosphatase level R74.8 Assessment & Plan Assessment & Plan (1) Bilateral knee pain: Code(s): M25.561 - Pain in right knee; M25.562 - Pain in left knee Category: Medical Plan: Bilateral knee pain which has significantly improved with exercise Patient would still like referral to physical therapy. He says he was never contacted. Will ask the office to help get him scheduled (2) Graves disease: Code(s): E05.00 - Thyrotoxicosis with diffuse goiter without thyrotoxic crisis or storm Category: Medical Plan: Patient continues methimazole. Thyroid levels improved Tolerating medication will Follow-up with endocrinology as recommended (3) Elevated liver enzymes: Code(s): R74.8 - Abnormal levels of other serum enzymes Category: Medical (4) Elevated alkaline phosphatase level: Code(s): R74.8 - Abnormal levels of other serum enzymes Category: Medical Plan Patient has elevated alk-phos and also elevated GGT. Previously elevated ALT. Bone specific alk-phos is also elevated. Given patient's age, malignancy and patch disease are very unlikely. Will get x-rays of his knees as he had complaints regarding this Will get ultrasound of liver and hepatic ducts as this is more likely the underlying cause of his lab abnormalities Will also check a vitamin-D level as this can affect alk-phos Orders: Orders Gamma Glutamyl Transpeptidase Today R74.8 - Abnormal levels of other serum enzymes XR knee LT 3V Today M25.561 - Pain in right knee, M25.562 - Pain in left knee Comprehensive Met. Panel Today R74.8 - Abnormal levels of other serum enzymes Alkaline Phosphatase Bone Today R74.8 - Abnormal levels of other serum enzymes US abdomen kenny w elastography Today R74.8 - Abnormal levels of other serum enzymes Vitamin D 25-OH Total Today E55.9 - Vitamin D deficiency, unspecified XR knee RT 3V Today M25.561 - Pain in right knee, M25.562 - Pain in left knee
--- OUTSIDE RECORDS SUMMARY | 2025-08-18 14:43 | XMS_ITS | Clinical Summary ---
Author Organization [facility] [employer] Address [address] [place] [address] Care Team Providers Care [employer] Liaison Officer Name Role Phone Unavailable Primary Care Provider [...] 3-dose series) 2017 COVID-19 Vaccine (1 - 2024-2 6 season) 2025 Influenza Vaccine (#1) 2025 Zoster Vaccines (1 [...]
[2025-08-18 14:44] VITALS: BP 116/66; PULSE 87; RESP 16; TEMP 36.3; O2SAT 98; BMI 29.1
== END 2025-08-18 15:04 | disposition home or self-care (01) ==
LOC: HO.HMCFM 14:40
PROVIDERS: PCP Family Medicine; Visit Provider Family Medicine
DX: M25.561 Pain in right knee (principal); M25.562 Pain in left knee; E05.00 Thyrotoxicosis with diffuse goiter without thyrotoxic crisis or storm; R74.8 Abnormal levels of other serum enzymes

== ENCOUNTER → 2025-08-18 14:39 | Outpatient (BNVA) | payer OTHER, SELFPAY | PROVIDERS: PCP Family Medicine; Visit Provider Family Medicine | DX: M25.561 Pain in right knee (principal); M25.562 Pain in left knee; E05.00 Thyrotoxicosis with diffuse goiter without thyrotoxic crisis or storm; R74.8 Abnormal levels of other serum enzymes | CPT/HCPCS: 99212 ==